=== PATIENT | female | born 1960 | race Caucasian/White ===

== ENCOUNTER 2020-07-16 14:17 | Inpatient (IN) ==
[2020-07-16] MEDS ORDERED: SODIUM CHLORIDE 0.9% 1000ML 2,000 ML IV ONE (14:48)
[2020-07-16] MEDS ORDERED: dexAMETHasone**PF** 10 MG/ML VIAL IV ONE (14:48)
--- NOTE | 2020-07-16 14:48 | Emergency Department Note ---
Impression & Plan Pneumonia due to 2019 novel coronavirus, Hypoxia, Transaminitis ED Provider Note NAME: LICHA SANTIAGO AGE: 59 SEX: F : 1960 ARRIVES VIA: Walk-In INFORMANT: Patient ED PROVIDER(S): Babar Max DO CHIEF COMPLAINT: Covid with shortness of breath HPI: Patient is a 59-year-old female who presents to the ER with a past medical history of Covid for which she was diagnosed this past . Symptoms started with cough and congestion as well as fevers, loss of taste, smell and headache along with diffuse myalgias and arthralgias. The shortness of breath has been worsening. She has diffuse chest pain with any movement or coughing. This been present since Sunday. She denies any belly pain, admits to diarrhea with nausea. No vomiting. Denies any dysuria, urgency, or frequency. No other exacerbating or remitting factors. No steroids. ROS: See above HPI for pertinent positives & negatives. A total of 10 systems reviewed and were otherwise negative. PAST MEDICAL HISTORY:See Below PAST SURGICAL HISTORY:See Below FAMILY HISTORY:See Below SOCIAL HISTORY:See Below HOME MEDICATIONS:See Below ALLERGIES:See Below VITALS:See Below PHYSICAL EXAMINATION: GENERAL: Sitting up in bed, alert, ill-appearing on nasal cannula EYE EXAM: normal conjunctiva. PERRL and EOM's grossly intact. OROPHARYNX: no exudate, no erythema, lips, buccal mucosa, and tongue normal and mucous membranes are moist NECK: supple, no nuchal rigidity, no adenopathy, non-tender LUNGS: Diminished bilaterally. Normal chest wall mechanics HEART: no murmurs, S1 normal and S2 normal ABDOMEN: abdomen soft, non-tender, normo-active bowel sounds, no masses, no rebound or guarding. UPPER EXTREMITIES: upper extremities are grossly normal. LOWER EXTREMITIES: No pitting edema. Calves are equal bilateral NEURO EXAM: Normal sensorium, cranial nerves II-XII grossly intact, normal s peech, no gross weakness of arms, no gross weakness of legs. MEDICAL DECISION MAKING: Patient is a 59-year-old female who presents the ER for shortness of breath Covid positive. IV was established blood work was obtained. Labs show a leukopenia at 4000. No significant anemia. No thrombocytopenia. BMP with mild hyponatremia. Mild transaminitis at 80-100. T bili was normal. Troponin was negative. Chest x-ray with multifocal pneumonia. Patient remained on nasal cannula throughout the stay in the ER as her pulse ox was 82% on room air. She was given Decadron as well as fluids and updated bedside discussed with the hospitalist for further evaluation. Triage Nursing notes reviewed. Limited review of prior medical records performed Vital Signs: reviewed and remarkable for Hypoxic Differential diagnosis: Differential diagnoses includes but is not limited to pneumonia, bronchitis, COPD/Asthma exacerbation, pneumothorax, pulmonary embolism, congestive heart failure, acute coronary syndrome ER treatment provided: See below Diagnostics interpreted by me: ECG: Sinus rhythm rate 85 Normal axis T wave inversion in aVL QTC 435 Cardiac Monitoring: An order was placed for continuous cardiac monitoring. The monitor shows a rate of 84 with sinus rhythm. Laboratory studies: As stated above and show below. Imaging studies: Portable AP upright 1 view of the chest shows multifocal pneumonia Consultation(s): Discussed with the hospitalist for further evaluation Procedures: none Critical Care: I have personally spent 33 minutes of critical care time in the direct manag ement of this patient. This includes bedside care, interpretation of diagnostic studies, and testing, discussion with consultants, patient, and family members, and other required patient management activities. This 33 minutes is in excess of all separately billable procedures. Past Med/Surg History Medical History (Updated 07/16/20 @ 21:16 by Babar Max DO) ADD (attention deficit disorder) Anxiety Depression History of small bowel obstruction Impaired fasting blood sugar Small bowel obstruction Surgical History (Updated 04/17/18 @ 08:59 by Faviola Guzman PA-C) History of appendectomy 05/02/2015 - [facility] -Dr Quiroga History of section "1996" History of exploratory laparotomy Exploratory laparoscopic resection of the adhesive band, resection of ter artis ileum with primary ileocecal anastomosis 05/02/15 - [facility] Dr Quiroga History of hysterectomy "Dr. Pantoja 09/2003" History of resection of terminal ileum Exploratory laparoscopic resection of the adhesive band, resection of terminal ileum with primary ileocecal anastomosis 05/02/15 - [facility] Dr Mar pan Family History (Updated 04/17/18 @ 09:04 by Faviola Guzman PA-C) Other Breast cancer FH: CAD (coronary artery disease) Hypertension Lung cancer Stroke Social History (Updated 04/17/18 @ 09:05 by Faviola Guzman PA-C) Smoking Status: Never smoker Hx Alcohol Use: Yes Alcohol type: wine Hx Substance Use: No Preferred Language: Gabonese Communication Ability: Effective Beliefs That Will Affect Care: None Current Living Situation: Family Current Living Situation Comment: lives with son Other Information That Helps Us Care for You: No Feels Safe at Home: Yes Safety Concerns: Feels Safe At This Time Assistive Devices: Glasses Allergies Allergies Allergy/AdvReac Type Severity Reaction Status Date / Time Sulfa (Sulfonamide Allergy Mild "SULFA": Verified 07/16/20 15:51 Antibiotics) UPSET STOMACH Home Meds Home Medications Medication Instructions Recorded Confirmed alprazolam 0.5 mg PO Q8 PRN 04/17/18 07/16/20 bupropion HCl 300 mg PO DAILY 04/17/18 07/16/20 cyclobenzaprine 10 mg PO HS PRN 04/17/18 07/16/20 dextroamphetamine-amphetamine 15 mg PO QPM 04/17/18 07/16/20 dextroamphetamine-amphetamine 30 mg PO BID 04/17/18 07/16/20 gabapentin 600 mg PO HS 04/17/18 07/16/20 dicyclomine 10 mg PO QID PRN 07/16/20 07/16/20 hydrochlorothiazide 25 mg PO DAILY 07/16/20 07/16/20 omeprazole 20 mg PO BID 07/16/20 07/16/20 trazodone 50 mg PO HS 07/16/20 07/16/20 vortioxetine [Trintellix] 20 mg PO QAM 07/16/20 07/16/20 Results & Data (ED) Vital Signs Vital Signs - 24 hr 07/16/20 14:22 07/16/20 14:28 07/16/20 15:59 Temperature 37.2 C Temperature Source Temporal Artery Scan Pulse Rate 96 H Pulse Rate [Finger] Respiratory Rate 24 Blood Pressure 106/72 Blood Pressure [Left Arm] Blood Pressure Mean 83 Blood Pressure Mean [Left Arm] Pulse Oximetry 82 L 82 L 98 Oxygen Delivery Method Room Air Room Air Oxymask Oxygen Flow Rate 0 7 Sepsis Recent Fever Within 48 Hours No Sepsis New/Unexplained Change in Mental Status N/A Sepsis Action Taken by Nursing No Action Required Oxygen Flow Rate - Titration 6 Pulse Oximetry Post Tiitration 94 07/16/20 16:06 07/16/20 16:56 Temperature Temperature Source Pulse Rate Pulse Rate [Finger] 85 85 Respiratory Rate 18 18 Blood Pressure Blood Pressure [Left Arm] 117/73 124/61 Blood Pressure Mean Blood Pressure Mean [Left Arm] 87 82 Pulse Oximetry 97 97 Oxygen Delivery Method Oxymask Room Air Oxygen Flow Rate 7 Sepsis Recent Fever Within 48 Hours Sepsis New/Unexplained Change in Mental Status Sepsis Action Taken by Nursing Oxygen Flow Rate - Titration Pulse Oximetry Post Tiitration Laboratory Data Result diagrams: 07/16/20 15:09 07/16/20 15:09 Lab Results 07/16/20 07/16/20 07/16/20 Range/Units 15:09 15:09 15:09 WBC 4.08 L (4.8-10.8) K/uL RBC 5.01 (4.2-5.4) M/uL Hgb 14.6 (12.0-16.0) g/dL Hct 43.3 (37-47) % MCV 86.4 (80-100) fL MCH 29.1 (25-34) pg MCHC 33.7 (32-36) g/dL RDW Std Deviation 50.7 H (36.4-46.3) fL RDW Coeff of Brenda 16.0 H (11.5-14.5) % Plt Count 163 (130-400) K/uL MPV 11.1 H (7.4-10.4) fL Immature Gran % (Auto) 0.7 % Neut % (Auto) 62.3 % Lymph % (Auto) 14.0 % [place] % (Auto) 22.8 % Eos % (Auto) 0.0 % Baso % (Auto) 0.2 % Neut # (Auto) 2.54 (1.4-6.5) K/uL Lymph # (Auto) 0.57 L (1.2-3.4) K/uL [place] # (Auto) 0.93 H (0.11-0.59) K/uL Eos # (Auto) 0.00 (0-0.5) K/uL Baso # (Auto) 0.01 (0-0.2) K/uL Immature Gran # (Auto) 0.03 H (0.00-0.02) K/uL Sodium 132 L (136-145) mmol/L Potassium 3.5 (3.5-5.1) mmol/L Chloride 96 L (98-107) mmol/L Carbon Dioxide 31 (21-32) mmol/L Anion Gap 5.0 (3-11) BUN 25 H (7-18) mg/dl Creatinine 1.06 (0.6-1.2) mg/dl Est Cr Clr Drug Dosing 64.6 ml/min Est GFR ( Amer) 67.5 Est GFR (Non-Af Amer) 58.2 BUN/Creatinine Ratio 23.6 H (10-20) Glucose 120 H (70-99) mg/dl Calcium 8.6 (8.5-10.1) mg/dl Total Bilirubin 0.4 Cancelled (0.2-1) mg/dl Direct Bilirubin 0.2 Cancelled (0-0.2) mg/dl AST 82 H Cancelled (15-37) U/L ALT 105 H Cancelled (12-78) U/L Alkaline Phosphatase 160 H Cancelled (45-117) U/L Troponin I < 0.015 (0-0.045) ng/ml Total Protein 8.0 Cancelled (6.4-8.2) gm/dl Albumin 3.3 L Cancelled (3.4-5.0) gm/dl Administered Medications Amphetamine/Dextroamphetamine (Amphetamine Asp/Sulf/Dextramph 5 Mg Tab) 15 mg PO 1630 YING Stop: 07/31/20 16:29 Last Admin: 07/16/20 20:50 Dose: Not Given Documented by: [id number] Enoxaparin Sodium (Enoxaparin Inj 40 Mg/0.4 Ml Syr) 40 mg SQ Q12H YING Stop: 08/15/20 19:59 Last Admin: 07/16/20 20:26 Dose: 40 mg Documented by: [id number] Gabapentin (Gabapentin 600 Mg Tab) 600 mg PO HS YING Stop: 08/15/20 20:59 Last Admin: 07/16/20 20:26 Dose: 600 mg Documented by: [id number] Sodium Chloride (Nss 1000ml) 1,000 mls @ 80 mls/hr IV .[id number] YING Stop: 07/17/20 07:09 Last Admin: 07/16/20 20:25 Dose: 80 mls/hr Documented by: [id number] Remdesivir 200 mg/ Sodium (Chloride) 250 mls @ 125 mls/hr IV ONE ONE; Protocol Stop: 07/16/20 21:29 Last Admin: 07/16/20 20:25 Dose: 125 mls/hr Documented by: [id number] Pantoprazole Sodium (Pantoprazole 40 Mg Tab) 40 mg PO BID YING Stop: 08/15/20 20:59 Last Admin: 07/16/20 20:26 Dose: 40 mg Documented by: [id number] Trazodone HCl (Trazodone Hcl 50 Mg Tab) 50 mg PO HS YING Stop: 08/15/20 20:59 Last Admin: 07/16/20 20:48 Dose: Not Given Documented by: [id number] Discontinued Medications Acetaminophen (Acetaminophen 500 Mg Tab) 1,000 mg PO NOW STA Stop: 07/16/20 16:55 Last Admin: 07/16/20 17:36 Dose: Not Given Documented by: [id number] Acetaminophen (Acetaminophen 500 Mg Tab) Confirm Administered Dose 500 mg .ROUTE .STK-MED ONE Stop: 07/16/20 17:01 Last Admin: 07/16/20 17:04 Dose: 500 mg Documented by: [id number] Acetaminophen (Acetaminophen 500 Mg Tab) Confirm Administered Dose 500 mg .ROUTE .STK-MED ONE Stop: 07/16/20 17:01 Last Admin: 07/16/20 17:04 Dose: 500 mg Documented by: [id number] Dexamethasone Sodium Phosphate (DexamethasonePf 10 Mg/Ml Vial) 8 mg IV NOW ONE Stop: 07/16/20 14:49 Last Admin: 07/16/20 16:02 Dose: 8 mg Documented by: [id number] Sodium Chloride (Nss 1000ml) 2,000 mls @ 999 mls/hr IV .Q2H1M ONE Stop: 07/16/20 16:48 Last Infusion: 07/16/20 18:04 Dose: 0 mls/hr Documented by: [id number] Admin: 07/16/20 16:02 Dose: 999 mls/hr Documented by: [id number] Imaging Data Radiologist's Impression: Chest X-Ray 07/16/20 14:30 SINGLE VIEW CHEST CLINICAL HISTORY: Respiratory distress. FINDINGS: An AP, portable, upright chest radiograph is compared to study dated 05/13/2015. The cardiomediastinal silhouette is unremarkable. Multifocal patchy airspace consolidation is seen throughout both lungs. No large pleural effusion or pneumothorax is seen. The skeletal structures are osteopenic. The bony thorax is grossly intact. IMPRESSION: Multifocal airspace consolidation is typical for pneumonia. Clinical correlation will be required and radiographic follow-up to resolution is recommended. ACT 112: Negative or not required by law. Electronically signed by: Reyes Frazier M.D. 07/16/2020 3:35 PM Discharge Plan Visit Data Chief Complaint: Chest Pain Stated Complaint: COVID +, CHEST PAIN ED Provider: Babar Max Discharge Problem: Pneumonia due to 2019 novel coronavirus, Hypoxia, Transaminitis Patient Disposition: Admitted As Inpatient Discharge Instructions Interventions: ED Discharge Assessment Last Done: 07/16/20 18:15
[2020-07-16 15:27] LABS: Basophils # (auto) 0.01 K/uL (0-0.2); Basophils % (auto) 0.2 %; Hematocrit (blood only) 43.3 % (37-47); Hemoglobin 14.6 g/dL (12.0-16.0); Immature Granulocytes # (auto) 0.03 K/uL (0.00-0.02); Immature Granulocytes % (auto) 0.7 %; Lymphocytes # (auto) 0.57 K/uL (1.2-3.4); Mean Corpuscular Hemoglobin 29.1 pg (25-34); Mean Corpuscular Hgb Conc 33.7 g/dL (32-36); Mean Corpuscular Volume 86.4 fL (80-100); Mean Platelet Volume 11.1 fL (7.4-10.4); Monocytes # (auto) 0.93 K/uL (0.11-0.59); Monocytes % (auto) 22.8 %; Neutrophils # (auto) 2.54 K/uL (1.4-6.5); Neutrophils % (auto) 62.3 %; Platelet Count 163 K/uL (130-400); RDW Standard Deviation 50.7 fL (36.4-46.3); Red Blood Count 5.01 M/uL (4.2-5.4); White Blood Count 4.08 K/uL (4.8-10.8)
--- NOTE | 2020-07-16 15:36 | XRay Report ---
SINGLE VIEW CHEST CLINICAL HISTORY: Respiratory distress. FINDINGS: An AP, portable, upright chest radiograph is compared to study dated 05/13/2015. The cardiom ediastinal silhouette is unremarkable. Multifocal patchy airspace consolidation is seen throughout yola th lungs. No large pleural effusion or pneumothorax is seen. The skeletal structures are osteopenic. The bony thorax is grossly intact. IMPRESSION: Multifocal airspace consolidation is typical for pneumonia. Clinical correlation will be required and radiographic follow-up to resolution is recommended. ACT 112: Negative or not required by law. Electronically signed by: Reeys Frazier M.D. 07/16/2020 3:35 PM
[2020-07-16 15:48] LABS: BUN Creatinine Ratio 23.6 (10-20); Blood Urea Nitrogen 25 mg/dl (7-18); Calcium 8.6 mg/dl (8.5-10.1); Carbon Dioxide 31 mmol/L (21-32); Chloride 96 mmol/L (98-107); Creatinine Clr Calc Pharmacy 64.6 ml/min; Est GFR (African American) 67.5; Est GFR (Non-African American) 58.2; Glucose 120 mg/dl (70-99); Potassium 3.5 mmol/L (3.5-5.1); Sodium 132 mmol/L (136-145)
[2020-07-16 15:52] LABS: Troponin I < 0.015 ng/ml (0-0.045)
[2020-07-16 16:24] LABS: Alanine Aminotransferase 105 U/L (12-78); Albumin Level 3.3 gm/dl (3.4-5.0); Alkaline Phosphatase 160 U/L (45-117); Aspartate Aminotransferase 82 U/L (15-37); Bilirubin Direct 0.2 mg/dl (0-0.2); Bilirubin,Total 0.4 mg/dl (0.2-1)
--- NOTE | 2020-07-16 16:29 | Electrocardiogram Report ---
Test Reason : Blood Pressure : / mmHG Vent. Rate : 085 BPM Atrial Rate : 085 BPM P-R Int : 176 ms QRS Dur : 102 ms QT Int : 366 ms P-R-T Axes : 009 -04 071 degrees QTc Int : 435 ms Normal sinus rhythm Confirmed by Guzman Cosme ([id number]) on 07/16/2020 4:29:21 PM Referred By: Confirmed By:Avila Cosme
[2020-07-16] MEDS ORDERED: ACETAMINOPHEN 500 MG TAB PO STA (16:54)
[2020-07-16] MEDS ORDERED: ACETAMINOPHEN 500 MG TAB ONE ×2 (17:00)
[2020-07-16] MEDS ORDERED: NITROGLYCERIN SL 0.4 MG/TAB TAB SL PRN (18:40)
[2020-07-16] MEDS ORDERED: SODIUM CHLORIDE 0.9% 1000ML 1,000 ML IV SCH (18:40)
[2020-07-16] MEDS ORDERED: DICYCLOMINE HCL 10 MG CAP PO PRN (18:40)
--- NOTE | 2020-07-16 19:05 | History and Physical Report ---
DATE OF ADMISSION: 07/16/2020 CHIEF COMPLAINT: Shortness of breath, COVID. HISTORY OF PRESENT ILLNESS: This is a 59-year-old female with past medical history significant for iron deficiency anemia, chronic fatigue syndrome, major depression, attention deficit hyperactivity disorder, status post repair of ventral hernia, presents with shortness of breath and chest pain. The patient started symptoms of COVID on last with congestion, fever, loss of smell and taste and headache along with myalgias and arthralgias and poor appetite. She also had some diarrhea, no diarrhea today. Last couple of days the symptoms got worse. She was tested on 07/13/2020 and was positive for COVID. In the ER, she was saturating only 82% on room air, requiring oxygen. Otherwise, resting comfortably and hemodynamically stable. Denies any blurred vision, no earache, has nausea, no vomiting, has chest pain, chest pain is more with coughing. No abdominal pain. Normal bladder movements. No rash. ALLERGIES: SULFA ANTIBIOTICS. PAST MEDICAL HISTORY: As mentioned above. PAST SURGICAL HISTORY: , colonoscopies, cryocautery of cervix, cystoscopy, EGDs, exploration of abdomen, implantation of mesh with incisional ventral hernia repair, total abdominal hysterectomy with removal of tubes. MEDICATIONS: The patient is on alprazolam 0.5 mg p.o. t.i.d. p.r.n., bupropion 300 mg p.o. daily, cyclobenzaprine 10 mg p.o. at bedtime p.r.n., Adderall 30 mg p.o. b.i.d., and Adderall 50 mg p.o. q.p.m., dicyclomine 10 mg p.o. t.i.d. p.r.n., gabapentin 600 mg p.o. at bedtime, hydrochlorothiazide 25 mg p.o. daily, omeprazole 20 mg p.o. b.i.d., trazodone 50 mg p.o. at bedtime, Trintellix 20 mg p.o. a.m. FAMILY HISTORY: Significant for sister had lung cancer, father has arthritis, mother has mental disorder, hypertension. SOCIAL HISTORY: Lives with her son. No smoking. Alcohol occasional. No drug use. REVIEW OF SYMPTOMS: As per HPI. Rest of review of systems negative. PHYSICAL EXAMINATION: GENERAL: The patient is obese, currently not in acute distress. VITAL SIGNS: Temperature 37.2, pulse 84, respiratory rate 18, blood pressure 124/61, oxygen 82% on room air, currently 97%. HEENT: Pupils equal, round, reactive to light. Oral mucosa dry. NECK: No JVD. No neck masses. CARDIOVASCULAR: S1, S2 heard, regular rate and rhythm, no murmur, no gallop. RESPIRATORY SYSTEM: Normal AP diameter. No accessory muscle use. No wheezing, no crackles. ABDOMEN: Soft, bowel sounds present, nontender. No distention. CENTRAL NERVOUS SYSTEM: Cranial nerves II-XII grossly intact. Nonfocal. EXTREMITIES: No edema, no erythema. LABORATORY DATA: WBC 4.08, hemoglobin 14.6, hematocrit 43.3, platelets 163. Sodium 132, potassium 3.5, chloride 96, bicarbonate 31, BUN 25, creatinine 1.06, serum glucose 120, calcium 8.6, total bilirubin 0.4, direct bilirubin 0.2, AST 82, ALT 105, alkaline phosphatase 160. Troponin I less than 0.015. Chest x-ray, multifocal airspace consolidation is typical for pneumonia. EKG: Normal sinus rhythm, rate of 85, no acute ST changes seen. QTc 435. ASSESSMENT AND PLAN: This 59-year-old female presents with COVID pneumonia and hypoxia. 1. COVID pneumonia, hypoxia requiring oxygen 82% on room air, symptoms started since last and diagnosed on 07/13/2020, patient meets criteria for remdesivir and steroids, follow remdesivir labs. Follow the inflammatory markers. Monitor on tele floor. 2. Chest pain, more with cough. Initial troponin and EKG unremarkable. Follow serial enzymes. 3. History of iron deficiency anemia, status post EGD, which is showing large hiatal hernia with Thomas erosions. She gets iron infusions. In May, she has seen surgery, there is a plan for surgery for hernia repair. Currently, hemoglobin is stable at 14.6. We will follow for any bleeding. 4. History of major depression and attention deficit hyperactivity disorder. Continue home medication of Adderall and bupropion and trazodone and Trintellix.. 5. Deep venous thrombosis prophylaxis, Lovenox .As the patient has history of iron deficiency anemia and Thomas erosions. Monitor for any bleeding. If any bleeding will stop Lovenox. DISPOSITION: Closely monitor in tele floor. Level 1 full code. Expect discharge home and follow with family doctor. YVON
[2020-07-16] MEDS ORDERED: REMDESIVIR 200 MG in SODIUM CHLORIDE 0.9% 210 ML IV ONE (19:30)
[2020-07-16] MEDS: GABAPENTIN 600 MG TAB PO SCH (20:26)
[2020-07-16] MEDS: ENOXAPARIN INJ 40 MG/0.4 ML SYR SQ SCH (20:26)
[2020-07-16] MEDS: PANTOprazole 40 MG TAB PO SCH (20:26)
[2020-07-16] MEDS: traZODone HCL 50 MG TAB PO SCH (20:48)
[2020-07-16] MEDS: AMPHETAMINE ASP/SULF/DEXTRAMPH 5 MG TAB PO SCH (20:50)
[2020-07-17] MEDS: SODIUM CHLORIDE 0.9% 10ML FLUSH IV SCH ×2 (01:49→22:13)
[2020-07-17 06:42] LABS: Hematocrit (blood only) 41.4 % (37-47); Hemoglobin 13.5 g/dL (12.0-16.0); Immature Granulocytes # (auto) 0.03 K/uL (0.00-0.02); Lymphocytes # (auto) 0.39 K/uL (1.2-3.4); Lymphocytes % (auto) 13.2 %; Mean Corpuscular Hemoglobin 28.8 pg (25-34); Mean Corpuscular Hgb Conc 32.6 g/dL (32-36); Mean Corpuscular Volume 88.5 fL (80-100); Mean Platelet Volume 11.2 fL (7.4-10.4); Monocytes # (auto) 0.51 K/uL (0.11-0.59); Monocytes % (auto) 17.2 %; Neutrophils # (auto) 2.03 K/uL (1.4-6.5); Neutrophils % (auto) 68.6 %; Platelet Count 152 K/uL (130-400); RDW Coefficient of Variation 16.1 % (11.5-14.5); RDW Standard Deviation 51.7 fL (36.4-46.3); Red Blood Count 4.68 M/uL (4.2-5.4); White Blood Count 2.96 K/uL (4.8-10.8)
[2020-07-17 06:55] LABS: D Dimer 620 ug/L FEU (0-500)
[2020-07-17 07:28] LABS: Alanine Aminotransferase 93 U/L (12-78); Albumin Level 2.8 gm/dl (3.4-5.0); Alkaline Phosphatase 151 U/L (45-117); Aspartate Aminotransferase 65 U/L (15-37); BUN Creatinine Ratio 26.3 (10-20); Bilirubin,Total 0.2 mg/dl (0.2-1); Blood Urea Nitrogen 20 mg/dl (7-18); Calcium 7.8 mg/dl (8.5-10.1); Carbon Dioxide 27 mmol/L (21-32); Chloride 106 mmol/L (98-107); Creatinine Clr Calc Pharmacy 85.6 ml/min; Est GFR (African American) 99.3; Est GFR (Non-African American) 85.7; Ferritin 606.5 ng/ml (8-388); Glucose 178 mg/dl (70-99); Potassium 3.7 mmol/L (3.5-5.1); Sodium 138 mmol/L (136-145); Total Protein 7.4 gm/dl (6.4-8.2); Troponin I < 0.015 ng/ml (0-0.045)
[2020-07-17 07:29] LABS: Magnesium 2.2 mg/dl (1.8-2.4)
[2020-07-17 08:07] LABS: Bilirubin Direct < 0.1 mg/dl (0-0.2)
[2020-07-17] MEDS: ENOXAPARIN INJ 40 MG/0.4 ML SYR SQ SCH ×2 (08:39→19:57)
[2020-07-17] MEDS: hydroCHLOROthiazide 25 MG TAB PO SCH (08:40)
[2020-07-17] MEDS: PANTOprazole 40 MG TAB PO SCH ×2 (08:40→19:56)
[2020-07-17] MEDS: buPROPion XL 300 MG TABCR PO SCH (08:41)
[2020-07-17] MEDS: AMPHETAMINE ASP/SULF/DEXTRAMPH 10 MG TAB PO SCH ×2 (09:01→12:30)
[2020-07-17] MEDS: LOPERAMIDE HCL 2 MG CAP PO PRN (11:01)
[2020-07-17] MEDS: ACETAMINOPHEN 325 MG TAB PO PRN ×2 (11:06→17:56)
[2020-07-17] MEDS: dexAMETHasone 6 MG in SYRINGE 0 ML IV SCH (17:57)
[2020-07-17] MEDS: AMPHETAMINE ASP/SULF/DEXTRAMPH 5 MG TAB PO SCH (18:00)
--- NOTE | 2020-07-17 19:10 | Hospitalist Progress Note ---
Date of Service July 17, 2020 Assessment & Plan (1) Pneumonia due to 2019 novel coronavirus: (2) Hypoxia: Present on admission with worsening SOB and cough CXR showed Multifocal airspace consolidation is typical for pneumonia Continue Dexamethasone 6mg IV daily and remdesivir daily Will monitor LFT while on Remdesivir Will check inflammatory markers Pt said that her symptoms has been for about 1 week and was tested positive covid 19 on 07/13 Since symptoms as been going for 1 week, not a candidate for convalescent plasma Continue oxygen supplement Pt was encouraged to prone Continue monitor close Diarrhea Moslty due to covid 19 Continue loperamide BID Chest pain Mostyl related to costochondritis due to cough from covid 19 Troponin x 3 negative EKG showed no ischemic changes Clinically stable Anemia iron def status post EGD, which is showing large hiatal hernia with Thomas erosions. On iron infusion outpatient Hgb stable Transaminitis Possible related to acute illness Elevated LFT with AST 82 and ALT 105 and ALk phos 160 Liver enzymes trending with AST 65, ALT 93 and Alk 151 Continue monitor CMP while on Remdesivir Depression Continue home medication of Adderall and bupropion and trazodone and Trintellix. Deep venous thrombosis prophylaxis on Lovenox Admission and Anticipated Discharge Date Admission Date: July 16, 2020 Subjective Pt was seen and examined for follow up SOB due to COVID 19 Lying in bed with mild respiratory distress Pt said that she has 2 bowel movements diarrhea today She said that her breathing sligltly improves compare to when she came Denies any chest pain, palpitation, dizziness and fever Review of Systems Review of Systems: All systems reviewed & are unremarkable except as noted in Subjective Physical Exam Physical Exam: General- No acute distress Head- atraumatic Eyes- PERRL, EOMI, ENT- oropharynx clear Neck- supple, no JVD Lungs- diminished BS Heart- regular rhythm; no murmur Abdomen- normal bowel sounds, soft, nontender Extremities- no calf tenderness Neuro- alert, oriented x 3; PERRL, EOMI; no facial palsy; no dysarthria Skin- warm & dry Results & Data Results & Data ([facility]) Vital Signs (Past 12 Hours) Vital Signs Temp Pulse Pulse Resp BP Pulse Ox 07/17/20 15:59 74 07/17/20 14:58 36.5 C 74 20 142/77 H 92 07/17/20 11:23 36.6 C 78 19 142/85 H 90 07/17/20 08:00 67 07/17/20 07:45 36.4 C L 69 19 119/79 90
[2020-07-17] MEDS: GABAPENTIN 600 MG TAB PO SCH (19:56)
[2020-07-17] MEDS: traZODone HCL 50 MG TAB PO SCH (19:57)
[2020-07-17] MEDS: REMDESIVIR 100 MG in SODIUM CHLORIDE 0.9% 230 ML IV SCH (19:57)
[2020-07-17] MEDS: traMADol HCL 50 MG TABLET PO PRN (22:12)
[2020-07-17] MEDS: guaiFENesin 200 MG TAB PO SCH (22:13)
[2020-07-18] MEDS: ACETAMINOPHEN 325 MG TAB PO PRN ×3 (00:16→15:20)
[2020-07-18] MEDS: guaiFENesin 200 MG TAB PO SCH ×4 (05:52→20:04)
[2020-07-18] MEDS: ALPRAZolam 0.5 MG TABLET PO PRN ×2 (06:34→23:19)
[2020-07-18 07:22] LABS: Creatinine Clr Calc Pharmacy 87.8 ml/min; Est GFR (African American) 102.6; Est GFR (Non-African American) 88.5
--- NOTE | 2020-07-18 07:35 | Electrocardiogram Report ---
Test Reason : Blood Pressure : / mmHG Vent. Rate : 066 BPM Atrial Rate : 066 BPM P-R Int : 198 ms QRS Dur : 110 ms QT Int : 416 ms P-R-T Axes : 049 -05 033 degrees QTc Int : 436 ms Poor data quality, interpretation may be adversely affected Normal sinus rhythm Normal ECG When compared with ECG of 16-JUL-2020 15:14, No significant change was found Confirmed by Flaquito Buckner ([id number]) on 07/18/2020 7:35:39 AM Referred By: REFERRED SELF Confirmed By:Flaquito Buckner
[2020-07-18] MEDS: ENOXAPARIN INJ 40 MG/0.4 ML SYR SQ SCH ×2 (09:20→20:00)
[2020-07-18] MEDS: dexAMETHasone 6 MG in SYRINGE 0 ML IV SCH (09:20)
[2020-07-18] MEDS: PANTOprazole 40 MG TAB PO SCH ×2 (09:20→20:04)
[2020-07-18] MEDS: hydroCHLOROthiazide 25 MG TAB PO SCH (09:21)
[2020-07-18] MEDS: buPROPion XL 300 MG TABCR PO SCH (09:21)
[2020-07-18] MEDS: AMPHETAMINE ASP/SULF/DEXTRAMPH 10 MG TAB PO SCH ×2 (09:23→12:00)
[2020-07-18] MEDS: LOPERAMIDE HCL 2 MG CAP PO PRN (11:29)
[2020-07-18] MEDS: AMPHETAMINE ASP/SULF/DEXTRAMPH 5 MG TAB PO SCH (17:42)
--- NOTE | 2020-07-18 19:01 | Hospitalist Progress Note ---
Date of Service July 18, 2020 Assessment & Plan (1) Pneumonia due to 2019 novel coronavirus: (2) Hypoxia: Present on admission with worsening SOB and cough CXR showed Multifocal airspace consolidation is typical for pneumonia Continue Dexamethasone 6mg IV daily and remdesivir daily Continue monitor LFT while on Remdesivir Will check Inflammatory markers Pt said that her symptoms has been for about 1 week and was tested positive covid 19 on 07/13 Since symptoms as been going for 1 week, not a candidate for convalescent plasma Continue oxygen supplement Pt was encouraged to prone Continue monitor close Diarrhea Moslty due to covid 19 Continue loperamide BID Chest pain Mostly related to costochondritis due to cough from covid 19 Troponin x 3 negative EKG showed no ischemic changes Clinically stable Anemia iron def status post EGD, which is showing large hiatal hernia with Thomas erosions. On iron infusion outpatient Hgb stable Transaminitis Possible related to acute illness Elevated LFT with AST 82 and ALT 105 and ALk phos 160 Liver enzymes trending down with AST 65->44, ALT 93->77 Continue monitor CMP while on Remdesivir Depression Continue home medication of Adderall and bupropion and trazodone and Trintellix. Deep venous thrombosis prophylaxis on Lovenox Admission and Anticipated Discharge Date Admission Date: July 16, 2020 Subjective Pt was seen and examined for follow up SOB due to COVID 19 Lying in bed with mild respiratory distress Pt said that her breathing is slightly better compare to yesterday She continues to require oxygen supplement She said that the diarrhea improves Denies any chest pain, palpitation, dizziness and fever Review of Systems Review of Systems: All systems reviewed & are unremarkable except as noted in Subjective Physical Exam Physical Exam: General- No acute distress Head- atraumatic Eyes- PERRL, EOMI, ENT- oropharynx clear Neck- supple, no JVD Lungs- diminished BS Heart- regular rhythm; no murmur Abdomen- normal bowel sounds, soft, nontender Extremities- no calf tenderness Neuro- alert, oriented x 3; PERRL, EOMI; no facial palsy; no dysarthria Skin- warm & dry Results & Data Results & [facility] ([facility]) Vital Signs (Past 12 Hours) Vital Signs Temp Pulse Resp BP BP Pulse Ox 07/18/20 18:42 36.6 C 74 20 142/88 H 94 07/18/20 15:51 36.6 C 75 20 147/99 H 07/18/20 11:09 36.4 C L 71 19 113/76 94 07/18/20 08:20 36.6 C 65 18 160/58 H 96
[2020-07-18] MEDS: SODIUM CHLORIDE 0.9% 10ML FLUSH IV SCH (20:01)
[2020-07-18] MEDS: REMDESIVIR 100 MG in SODIUM CHLORIDE 0.9% 230 ML IV SCH (20:01)
[2020-07-18] MEDS: traZODone HCL 50 MG TAB PO SCH (20:03)
[2020-07-18] MEDS: GABAPENTIN 600 MG TAB PO SCH (20:04)
[2020-07-19] MEDS: guaiFENesin 200 MG TAB PO SCH ×4 (03:37→19:47)
[2020-07-19] MEDS: AMPHETAMINE ASP/SULF/DEXTRAMPH 10 MG TAB PO SCH ×2 (08:46→12:33)
[2020-07-19] MEDS: traMADol HCL 50 MG TABLET PO PRN (08:46)
[2020-07-19] MEDS: hydroCHLOROthiazide 25 MG TAB PO SCH (08:47)
[2020-07-19] MEDS: buPROPion XL 300 MG TABCR PO SCH (08:48)
[2020-07-19] MEDS: PANTOprazole 40 MG TAB PO SCH ×2 (08:48→19:48)
[2020-07-19] MEDS: dexAMETHasone 6 MG in SYRINGE 0 ML IV SCH (08:49)
[2020-07-19] MEDS: ENOXAPARIN INJ 40 MG/0.4 ML SYR SQ SCH ×2 (08:49→19:47)
[2020-07-19] MEDS: CYCLOBENZAPRINE HCL 10 MG TAB PO PRN (09:06)
[2020-07-19 09:14] LABS: Albumin Level 3.2 gm/dl (3.4-5.0); BUN Creatinine Ratio 26.3 (10-20); C Reactive Protein 1.13 mg/dl (0-0.29); Creatinine Clr Calc Pharmacy 91.1 ml/min; Est GFR (African American) 107.7
[2020-07-19 09:20] LABS: Albumin Globulin Ratio 0.7 (0.9-2); Bilirubin,Total 0.4 mg/dl (0.2-1); Ferritin 347.7 ng/ml (8-388); Globulin 4.3 gm/dl (2.5-4.0); Total Protein 7.5 gm/dl (6.4-8.2)
[2020-07-19] MEDS ORDERED: POTASSIUM CHLORIDE CRTAB 20 MEQ TABCR PO STA (09:30)
[2020-07-19] MEDS ORDERED: POTASSIUM CHLORIDE 10 MEQ TABCR PO STA (09:30)
[2020-07-19] MEDS ORDERED: COUGH DROP (SUGAR FREE) LOZ 24 LOZ/1 BOX BUCCAL ONE (10:56)
--- NOTE | 2020-07-19 14:43 | Electrocardiogram Report ---
Test Reason : Blood Pressure : / mmHG Vent. Rate : 068 BPM Atrial Rate : 068 BPM P-R Int : 194 ms QRS Dur : 104 ms QT Int : 434 ms P-R-T Axes : 037 -04 057 degrees QTc Int : 461 ms Normal sinus rhythm Normal ECG When compared with ECG of 17-JUL-2020 05:56, Non-specific change in ST segment in Lateral leads Confirmed by Sriram Ellington ([id number]) on 07/19/2020 2:43:26 PM Referred By: REFERRED SELF Confirmed By:Sriram Ellington
[2020-07-19] MEDS: AMPHETAMINE ASP/SULF/DEXTRAMPH 5 MG TAB PO SCH (17:12)
--- NOTE | 2020-07-19 17:37 | Hospitalist Progress Note ---
Date of Service July 19, 2020 Assessment & Plan (1) Pneumonia due to 2019 novel coronavirus: (2) Hypoxia: Acute respiratory failure with hypoxia Present on admission with worsening SOB and cough CXR showed Multifocal airspace consolidation is typical for pneumonia Continue Dexamethasone 6mg IV daily and remdesivir daily Continue monitor LFT while on Remdesivir Inflammatory markers with ESR 36, C-reactive decreased from 2.9 to 1.1 and ferritin normal Pt said that her symptoms has been for about 1 week and was tested positive covid 19 on 07/13 Since symptoms as been going for 1 week, not a candidate for convalescent plasma Continue oxygen supplement Continue encouraged pt to prone Continue monitor close Continue guafenesin for the cough Continue incentive spirometry and flutter valve Diarrhea Mostly due to covid 19 Continue loperamide BID PRN Resolved Chest pain Mostly related to costochondritis due to cough from covid 19 Troponin x 3 negative EKG showed no ischemic changes Clinically stable Anemia iron def status post EGD, which is showing large hiatal hernia with Thomas erosions. On iron infusion outpatient Hgb stable Transaminitis Possible related to acute illness Elevated LFT with AST 82 and ALT 105 and ALk phos 160 Liver enzymes trending down with AST 65->44-> 32, ALT 93->77->62 Continue monitor CMP while on Remdesivir Depression Continue home medication of Adderall and bupropion and trazodone and Trintellix. Deep venous thrombosis prophylaxis on Lovenox Admission and Anticipated Discharge Date Admission Date: July 16, 2020 Subjective Pt was seen and examined for follow up SOB due to COVID 19 Lying in bed continue to require 15L oxygen Pt said that her breathing is slightly better compare to yesterday She said that the diarrhea improves She said that she continue to cough and not able to bring the phlegm up Denies any chest pain, palpitation, dizziness and fever Review of Systems Review of Systems: All systems reviewed & are unremarkable except as noted in Subjective Physical Exam Physical Exam: General- No acute distress Head- atraumatic Eyes- PERRL, EOMI, ENT- oropharynx clear Neck- supple, no JVD Lungs- diminished BS Heart- regular rhythm; no murmur Abdomen- normal bowel sounds, soft, nontender Extremities- no calf tenderness Neuro- alert, oriented x 3; PERRL, EOMI; no facial palsy; no dysarthria Skin- warm & dry Results & Data Results & Data ([facility]) Vital Signs (Past 12 Hours) Vital Signs Temp Pulse Pulse Resp BP Pulse Ox 07/19/20 16:00 75 07/19/20 12:40 37.0 C 91 H 20 138/70 94 07/19/20 10:33 84 07/19/20 08:00 36.9 C 91 H 20 140/77 93
[2020-07-19] MEDS: traZODone HCL 50 MG TAB PO SCH (19:46)
[2020-07-19] MEDS: ACETAMINOPHEN 325 MG TAB PO PRN (19:46)
[2020-07-19] MEDS: GABAPENTIN 600 MG TAB PO SCH (19:49)
[2020-07-19] MEDS: REMDESIVIR 100 MG in SODIUM CHLORIDE 0.9% 230 ML IV SCH (20:02)
[2020-07-19] MEDS: ALPRAZolam 0.5 MG TABLET PO PRN (21:46)
[2020-07-19] MEDS: SODIUM CHLORIDE 0.9% 10ML FLUSH IV SCH (21:46)
[2020-07-20] MEDS: guaiFENesin 200 MG TAB PO SCH ×4 (03:48→19:44)
[2020-07-20 07:11] LABS: Albumin Level 3.1 gm/dl (3.4-5.0); BUN Creatinine Ratio 29.2 (10-20); Calcium 8.9 mg/dl (8.5-10.1); Creatinine Clr Calc Pharmacy 102.7 ml/min; Est GFR (African American) 113.7; Est GFR (Non-African American) 98.1; Potassium 3.3 mmol/L (3.5-5.1)
[2020-07-20 07:16] LABS: Albumin Globulin Ratio 0.7 (0.9-2); Bilirubin,Total 0.4 mg/dl (0.2-1); Globulin 4.4 gm/dl (2.5-4.0); Total Protein 7.5 gm/dl (6.4-8.2)
[2020-07-20] MEDS: AMPHETAMINE ASP/SULF/DEXTRAMPH 10 MG TAB PO SCH ×2 (08:12→12:18)
[2020-07-20] MEDS: PANTOprazole 40 MG TAB PO SCH ×2 (08:12→19:45)
[2020-07-20] MEDS: hydroCHLOROthiazide 25 MG TAB PO SCH (08:12)
[2020-07-20] MEDS: ENOXAPARIN INJ 40 MG/0.4 ML SYR SQ SCH ×2 (08:13→19:45)
[2020-07-20] MEDS: buPROPion XL 300 MG TABCR PO SCH (08:14)
[2020-07-20] MEDS: ACETAMINOPHEN 325 MG TAB PO PRN ×3 (08:16→19:44)
[2020-07-20] MEDS: dexAMETHasone 6 MG in SYRINGE 0 ML IV SCH (08:16)
[2020-07-20] MEDS ORDERED: POTASSIUM CHLORIDE CRTAB 20 MEQ TABCR PO STA (08:27)
[2020-07-20 08:49] LABS: Hematocrit (blood only) 44.6 % (37-47); Hemoglobin 14.9 g/dL (12.0-16.0); Mean Corpuscular Hgb Conc 33.4 g/dL (32-36); Mean Corpuscular Volume 86.9 fL (80-100); Mean Platelet Volume 11.1 fL (7.4-10.4); Platelet Count 278 K/uL (130-400); RDW Coefficient of Variation 15.7 % (11.5-14.5); RDW Standard Deviation 50.2 fL (36.4-46.3); Red Blood Count 5.13 M/uL (4.2-5.4)
[2020-07-20 08:56] LABS: BUN Creatinine Ratio 26.3 (10-20); C Reactive Protein 2.14 mg/dl (0-0.29); Calcium 9.2 mg/dl (8.5-10.1); Creatinine Clr Calc Pharmacy 102.7 ml/min; Est GFR (African American) 113.7; Est GFR (Non-African American) 98.1; Potassium 3.4 mmol/L (3.5-5.1)
[2020-07-20 08:59] LABS: Albumin Globulin Ratio 0.7 (0.9-2); Bilirubin,Total 0.4 mg/dl (0.2-1); Ferritin 313.2 ng/ml (8-388); Globulin 4.3 gm/dl (2.5-4.0); Total Protein 7.3 gm/dl (6.4-8.2)
--- NOTE | 2020-07-20 16:23 | Hospitalist Progress Note ---
Date of Service July 20, 2020 Assessment & Plan (1) Pneumonia due to 2019 novel coronavirus: (2) Hypoxia: Acute respiratory failure with hypoxia Present on admission with worsening SOB and cough CXR showed Multifocal airspace consolidation is typical for pneumonia Continue Dexamethasone 6mg IV daily and remdesivir daily Continue monitor LFT while on Remdesivir Inflammatory markers with ESR 36-><44 , C-reactive from 2.9 to 1.1 -> 2.14 and ferritin normal Pt said that her symptoms has been for about 1 week and was tested positive covid 19 on 07/13 Since symptoms as been going for 1 week, not a candidate for convalescent plasma Currently she is on 6L NC, will continue titrate Continue encouraged pt to prone Continue monitor close Continue guaifenesin for the cough Continue incentive spirometry and flutter valve Diarrhea Mostly due to covid 19 Continue loperamide BID PRN Resolved Chest pain Mostly related to costochondritis due to cough from covid 19 Troponin x 3 negative EKG showed no ischemic changes Clinically stable Anemia iron def status post EGD, which is showing large hiatal hernia with Thomas erosions. On iron infusion outpatient Hgb stable Transaminitis Possible related to acute illness Elevated LFT with AST 82 and ALT 105 and ALk phos 160 Liver enzymes trending down with AST 65->44-> 32, ALT 93->77->62 Continue monitor CMP while on Remdesivir Depression Continue home medication of Adderall and bupropion and trazodone and Trintellix. Deep venous thrombosis prophylaxis on Lovenox Admission and Anticipated Discharge Date Admission Date: July 16, 2020 Subjective Pt was seen and examined for follow up SOB due to COVID 19 Sitting in chair with no distress Pt said that her breathing improves She is on 6 L NC and she said that she is breathing a lot better She has no diarrhea She said that she continues to cough and phlegm starts to get loose Denies any chest pain, palpitation, dizziness and fever Review of Systems Review of Systems: All systems reviewed & are unremarkable except as noted in Subjective Physical Exam Physical Exam: General- No acute distress Head- atraumatic Eyes- PERRL, EOMI, ENT- oropharynx clear Neck- supple, no JVD Lungs- diminished BS Heart- regular rhythm; no murmur Abdomen- normal bowel sounds, soft, nontender Extremities- no calf tenderness Neuro- alert, oriented x 3; PERRL, EOMI; no facial palsy; no dysarthria Skin- warm & dry Results & Data Results & Data ([facility]) Vital Signs (Past 12 Hours) Vital Signs Temp Pulse Pulse Resp BP BP Pulse Ox 07/20/20 15:38 36.5 C 83 19 151/93 H 90 07/20/20 15:03 79 07/20/20 12:06 36.6 C 80 19 128/84 90 07/20/20 08:00 72 07/20/20 07:29 36.4 C L 72 19 149/88 H 90
[2020-07-20] MEDS: AMPHETAMINE ASP/SULF/DEXTRAMPH 5 MG TAB PO SCH (16:35)
[2020-07-20] MEDS: GABAPENTIN 600 MG TAB PO SCH (19:44)
[2020-07-20] MEDS: traZODone HCL 50 MG TAB PO SCH (19:44)
[2020-07-20] MEDS: REMDESIVIR 100 MG in SODIUM CHLORIDE 0.9% 230 ML IV SCH (20:05)
[2020-07-20] MEDS: SODIUM CHLORIDE 0.9% 10ML FLUSH IV SCH (20:06)
[2020-07-20] MEDS: ALPRAZolam 0.5 MG TABLET PO PRN (21:30)
[2020-07-21] MEDS: guaiFENesin 200 MG TAB PO SCH ×4 (03:28→19:48)
[2020-07-21 07:09] LABS: Albumin Level 3.2 gm/dl (3.4-5.0); BUN Creatinine Ratio 29.4 (10-20); Calcium 8.8 mg/dl (8.5-10.1); Creatinine Clr Calc Pharmacy 100.9 ml/min; Est GFR (African American) 113.1; Est GFR (Non-African American) 97.6; Potassium 3.5 mmol/L (3.5-5.1)
[2020-07-21 07:12] LABS: Albumin Globulin Ratio 0.7 (0.9-2); Bilirubin,Total 0.6 mg/dl (0.2-1); C Reactive Protein 1.68 mg/dl (0-0.29); Globulin 4.4 gm/dl (2.5-4.0); Total Protein 7.6 gm/dl (6.4-8.2)
[2020-07-21] MEDS: AMPHETAMINE ASP/SULF/DEXTRAMPH 10 MG TAB PO SCH ×2 (07:37→11:17)
[2020-07-21] MEDS: ACETAMINOPHEN 325 MG TAB PO PRN ×3 (07:37→19:54)
[2020-07-21] MEDS: dexAMETHasone 6 MG in SYRINGE 0 ML IV SCH (08:05)
[2020-07-21] MEDS: buPROPion XL 300 MG TABCR PO SCH (08:06)
[2020-07-21] MEDS: hydroCHLOROthiazide 25 MG TAB PO SCH (08:06)
[2020-07-21] MEDS: PANTOprazole 40 MG TAB PO SCH ×2 (08:06→19:46)
[2020-07-21] MEDS: guaiFENesin 600 MG TABCR PO SCH ×2 (08:07→19:48)
[2020-07-21] MEDS: ENOXAPARIN INJ 40 MG/0.4 ML SYR SQ SCH ×2 (08:07→19:49)
[2020-07-21] MEDS: VORTIOXETINE HYDROBROMIDE PO SCH (08:07)
[2020-07-21] MEDS ORDERED: POTASSIUM CHLORIDE CRTAB 20 MEQ TABCR PO STA (08:15)
--- NOTE | 2020-07-21 08:18 | Hospitalist Progress Note ---
Date of Service July 21, 2020 Assessment & Plan (1) Pneumonia due to 2019 novel coronavirus: (2) Hypoxia: Acute respiratory failure with hypoxia Present on admission with worsening SOB and cough CXR showed Multifocal airspace consolidation is typical for pneumonia Continue Dexamethasone 6mg IV daily and remdesivir daily (Remdesevir finished) Continue monitor LFT while on Remdesivir Inflammatory markers with ESR 36-><44 , C-reactive from 2.9 to 1.1 -> 2.14 and ferritin normal Pt said that her symptoms has been for about 1 week and was tested positive covid 19 on 07/13 Since symptoms as been going for 1 week, not a candidate for convalescent plasma Currently she is on 4.5L NC, will continue titrate Continue encouraged pt to prone Continue monitor close Continue guaifenesin for the cough, incentive spirometry and flutter valve Continues to have cough, high oxygen requirement, pain with inspiration or movement, will obtain CT PE to rule out PE Diarrhea Mostly due to covid 19 Continue loperamide BID PRN Resolved Chest pain Mostly related to costochondritis due to cough from covid 19 Troponin x 3 negative EKG showed no ischemic changes Clinically stable Obtain CT PE, to rule out PE Anemia iron def status post EGD, which is showing large hiatal hernia with Thomas erosions. On iron infusion outpatient Hgb stable Transaminitis Possible related to acute illness Elevated LFT with AST 82 and ALT 105 and ALk phos 160 Liver enzymes trending down with AST 65->44-> 32, ALT 93->77->62 Continue monitor CMP while on Remdesivir Depression Continue home medication of Adderall and bupropion and trazodone and Trintellix. DVT prophylaxis on Lovenox Admission and Anticipated Discharge Date Admission Date: July 16, 2020 Subjective Pt was seen and examined for follow up SOB due to COVID 19 Sitting in bed with no distress Pt said that her breathing improved but she feels warm and has rib pain with movement She is on 4.5 L NC She has diarrhea/ loose stools, she has had it prior to admission She said that she continues to cough and phlegm starts to get loose Denies any chest pain, palpitation, dizziness and fever Review of Systems Review of Systems: All systems reviewed & are unremarkable except as noted in HPI & below Constitutional: no fever (but feeling warm) Respiratory: + cough, + dyspnea (improved) and + pain on inspiration Cardiovascular: + chest pain (lower ribcage pain w/ inspiration) Gastrointestinal: no abdominal pain, no nausea and no vomiting Physical Exam Physical Exam: General- No acute distress Head- atraumatic Eyes- PERRL, EOMI, ENT- oropharynx clear Neck- supple, no JVD Lungs- + diffuse mild rhonchi, no wheezing Heart- regular rhythm; no murmur Abdomen- normal bowel sounds, soft, nontender Extremities- no calf tenderness Neuro- alert, oriented x 3; PERRL, EOMI; no facial palsy; no dysarthria, moves extremities Skin- warm & dry Results & Data Results & Data ([facility]) Vital Signs (Past 12 Hours) Vital Signs Temp Pulse Pulse Resp BP BP Pulse Ox 07/21/20 07:43 73 07/21/20 07:30 36.3 C L 76 22 144/86 H 91 07/21/20 03:43 36.3 C L 69 18 125/78 90 07/20/20 23:00 65 07/20/20 22:51 36.3 C L 68 20 125/69 91 Laboratory Results 07/21/20 07/21/20 07/20/20 Range/Units 06:10 06:10 05:28 WBC 5.40 (4.8-10.8) K/uL RBC 5.13 (4.2-5.4) M/uL Hgb 14.9 (12.0-16.0) g/dL Hct 44.6 (37-47) % MCV 86.9 (80-100) fL MCH 29.0 (25-34) pg MCHC 33.4 (32-36) g/dL RDW Std Deviation 50.2 H (36.4-46.3) fL RDW Coeff of Brenda 15.7 H (11.5-14.5) % Plt Count 278 (130-400) K/uL MPV 11.1 H (7.4-10.4) fL ESR 47 H (0-30) mm/hr Sodium 137 (136-145) mmol/L Potassium 3.5 (3.5-5.1) mmol/L Chloride 103 (98-107) mmol/L Carbon Dioxide 28 (21-32) mmol/L Anion Gap 6.0 (3-11) BUN 20 H (7-18) mg/dl Creatinine 0.67 (0.6-1.2) mg/dl Est Cr Clr Drug Dosing 100.9 ml/min Est GFR ( Amer) 113.1 Est GFR (Non-Af Amer) 97.6 BUN/Creatinine Ratio 29.4 H (10-20) Glucose 117 H (70-99) mg/dl Calcium 8.8 (8.5-10.1) mg/dl Ferritin (8-388) ng/ml Total Bilirubin 0.6 (0.2-1) mg/dl AST 44 H (15-37) U/L ALT 79 H (12-78) U/L Alkaline Phosphatase 137 H (45-117) U/L C-Reactive Protein 1.68 H (0-0.29) mg/dl Total Protein 7.6 (6.4-8.2) gm/dl Albumin 3.2 L (3.4-5.0) gm/dl Globulin 4.4 H (2.5-4.0) gm/dl Albumin/Globulin Ratio 0.7 L (0.9-2) 07/20/20 07/20/20 Range/Units 05:28 05:28 WBC (4.8-10.8) K/uL RBC (4.2-5.4) M/uL Hgb (12.0-16.0) g/dL Hct (37-47) % MCV (80-100) fL MCH (25-34) pg MCHC (32-36) g/dL RDW Std Deviation (36.4-46.3) fL RDW Coeff of Brenda (11.5-14.5) % Plt Count (130-400) K/uL MPV (7.4-10.4) fL ESR 44 H (0-30) mm/hr Sodium 136 (136-145) mmol/L Potassium 3.4 L (3.5-5.1) mmol/L Chloride 101 (98-107) mmol/L Carbon Dioxide 29 (21-32) mmol/L Anion Gap 6.0 (3-11) BUN 17 (7-18) mg/dl Creatinine 0.66 (0.6-1.2) mg/dl Est Cr Clr Drug Dosing 102.7 ml/min Est GFR ( Amer) 113.7 Est GFR (Non-Af Amer) 98.1 BUN/Creatinine Ratio 26.3 H (10-20) Glucose 119 H (70-99) mg/dl Calcium 9.2 (8.5-10.1) mg/dl Ferritin 313.2 (8-388) ng/ml Total Bilirubin 0.4 (0.2-1) mg/dl AST 35 (15-37) U/L ALT 62 (12-78) U/L Alkaline Phosphatase 129 H (45-117) U/L C-Reactive Protein 2.14 H (0-0.29) mg/dl Total Protein 7.3 (6.4-8.2) gm/dl Albumin 3.0 L (3.4-5.0) gm/dl Globulin 4.3 H (2.5-4.0) gm/dl Albumin/Globulin Ratio 0.7 L (0.9-2) Medications Administered Current Inpatient Medications Acetaminophen (Acetaminophen 325 Mg Tab) 650 mg PO Q4H PRN PRN Reason: Pain or Fever Stop: 08/15/20 18:39 Last Admin: 07/21/20 07:37 Dose: 650 mg Documented by: Alprazolam (Alprazolam 0.5 Mg Tablet) 0.5 mg PO Q8 PRN PRN Reason: Anxiety Stop: 08/15/20 18:39 Last Admin: 07/20/20 21:30 Dose: 0.5 mg Documented by: Amphetamine/Dextroamphetamine (Amphetamine Asp/Sulf/Dextramph 10 Mg Tab) 30 mg PO 0730,1130 [facility] Stop: 07/31/20 07:29 Last Admin: 07/21/20 07:37 Dose: 30 mg Documented by: Amphetamine/Dextroamphetamine (Amphetamine Asp/Sulf/Dextramph 5 Mg Tab) 15 mg PO 1630 [facility] Stop: 07/31/20 16:29 Last Admin: 07/20/20 16:35 Dose: 15 mg Documented by: Bupropion HCl (Bupropion Xl 300 Mg Tabcr) 300 mg PO DAILY [facility] Stop: 08/16/20 08:59 Last Admin: 07/21/20 08:06 Dose: 300 mg Documented by: Cyclobenzaprine HCl (Cyclobenzaprine Hcl 10 Mg Tab) 10 mg PO HS PRN PRN Reason: Muscle Spasm Stop: 08/15/20 18:56 Last Admin: 07/19/20 09:06 Dose: 10 mg Documented by: Dicyclomine HCl (Dicyclomine Hcl 10 Mg Cap) 10 mg PO QID PRN PRN Reason: Abdominal Discomfort Stop: 08/15/20 18:39 Enoxaparin Sodium (Enoxaparin Inj 40 Mg/0.4 Ml Syr) 40 mg SQ Q12H [facility] Stop: 08/15/20 19:59 Last Admin: 07/21/20 08:07 Dose: 40 mg Documented by: Gabapentin (Gabapentin 600 Mg Tab) 600 mg PO HS [facility] Stop: 08/15/20 20:59 Last Admin: 07/20/20 19:44 Dose: 600 mg Documented by: Guaifenesin (Guaifenesin 200 Mg Tab) 200 mg PO Q6H [facility] Stop: 08/16/20 19:59 Last Admin: 07/21/20 08:05 Dose: 200 mg Documented by: Guaifenesin (Guaifenesin 600 Mg Tabcr) 600 mg PO Q12 [facility] Stop: 08/20/20 08:59 Last Admin: 07/21/20 08:07 Dose: 600 mg Documented by: Hydrochlorothiazide (Hydrochlorothiazide 25 Mg Tab) 25 mg PO DAILY [facility] Stop: 08/16/20 08:59 Last Admin: 07/21/20 08:06 Dose: 25 mg Documented by: Dexamethasone 6 mg/ Syringe 1.5 mls @ 1 mls/min IV DAILY [facility] Stop: 07/27/20 15:59 Last Admin: 07/21/20 08:05 Dose: 1 mls/min Documented by: Loperamide HCl (Loperamide Hcl 2 Mg Cap) 2 mg PO Q8H PRN PRN Reason: Diarrhea Stop: 08/16/20 09:05 Last Admin: 07/18/20 11:29 Dose: 2 mg Documented by: Nitroglycerin (Nitroglycerin Sl 0.4 Mg/Tab Tab) 0.4 mg SL UD PRN PRN Reason: Chest Pain Stop: 08/15/20 18:39 Pantoprazole Sodium (Pantoprazole 40 Mg Tab) 40 mg PO BID [facility] Stop: 08/15/20 20:59 Last Admin: 07/21/20 08:06 Dose: 40 mg Documented by: Potassium Chloride (Potassium Chloride Crtab 20 Meq Tabcr) 40 meq PO NOW STA Stop: 07/21/20 08:16 Tramadol HCl (Tramadol Hcl 50 Mg Tablet) 25 - 50 mg PO Q4H PRN PRN Reason: Pain Stop: 08/16/20 21:45 Last Admin: 07/19/20 08:46 Dose: 50 mg Documented by: Trazodone HCl (Trazodone Hcl 50 Mg Tab) 50 mg PO HS [facility] Stop: 08/15/20 20:59 Last Admin: 07/20/20 19:44 Dose: 50 mg Documented by: Vortioxetine (Vortioxetine Hydrobromide) 1 ea PO DAILY [facility] Stop: 08/20/20 08:59 Last Admin: 07/21/20 08:07 Dose: 1 ea Documented by:
--- NOTE | 2020-07-21 10:59 | XRay Report ---
XR chest 1V portable HISTORY: 59 years-old Female follow up acute shortness of breath COMPARISON: Chest radiograph 07/16/2020 TECHNIQUE: Portable AP view of the chest FINDINGS: Cardiomediastinal and hilar silhouettes are unchanged. Multifocal airspace opacities redemonstrated w ith progressive consolidation of the left lung base. No pneumothorax. Mild blunting of the cost chron ic angles may reflect trace pleural effusions. Degenerative changes of the shoulders and spine. IMPRESSION: Bilateral airspace opacities with progressive consolidation of the left lung base. Findin gs are compatible with multifocal pneumonia. ACT 112: Negative or not required by law. The above report was generated using voice recognition software. It may contain grammatical, syntax o r spelling errors. Electronically signed by: Hitesh Terry M.D. 07/21/2020 10:58 AM
[2020-07-21] MEDS: cefTRIAXone SODIUM 2,000 MG in DEXTROSE 5% 50 ML IV SCH (16:36)
[2020-07-21] MEDS: DOXYCYCLINE HYCLATE 100 MG CAP PO SCH ×2 (16:36→21:49)
[2020-07-21] MEDS: ADVANCED PROBIOTIC 1250 MG CAPSULE PO SCH (16:37)
[2020-07-21] MEDS: AMPHETAMINE ASP/SULF/DEXTRAMPH 5 MG TAB PO SCH (16:46)
[2020-07-21] MEDS ORDERED: OPTIRAY 350 500ml IV ONE (17:19)
--- NOTE | 2020-07-21 17:35 | CT Scan Report ---
CT ANGIOGRAPHY OF THE CHEST, PULMONARY EMBOLUS PROTOCOL CLINICAL HISTORY: Shortness of breath. Covid. COMPARISON STUDY: Chest radiograph performed earlier today. TECHNIQUE: Following IV administration of 105 mL of Optiray, helical axial images of the chest were o btained utilizing the pulmonary embolus protocol. Maximal intensity projections and sagittal and cor onal reformats were viewed on an independent 3D workstation. IV contrast was administered without co mplication. Automated exposure control was utilized for the study. A dose lowering technique was ut ilized adhering to the principles of ALARA. CT DOSE: 504.75 mGy.cm FINDINGS: No pulmonary emboli are identified although this exam is mildly compromised by mixing thad fact, most pronounced within the left pulmonary artery. Size of the heart is at the upper limits of n ormal. A large hiatal hernia is noted. Prominent bilateral hilar lymph nodes are noted. Moderate mult ifocal consolidation groundglass opacities within the lungs are noted. Central airways are patent. Th ere is no pneumothorax or pleural effusion. Hepatic steatosis is noted. There is no thoracic aortic d issection. There is no pericardial effusion. IMPRESSION: 1. No pulmonary emboli identified although exam mildly compromised by mixing artifact. 2. Moderate multifocal consolidation groundglass opacities within lungs consistent with viral pneumon ia. 3. Large hiatal hernia. 4. Hepatic steatosis. ACT 112: Negative or not required by law. Electronically signed by: Shawn Huddleston M.D. 07/21/2020 5:34 PM
[2020-07-21] MEDS: traZODone HCL 50 MG TAB PO SCH (19:45)
[2020-07-21] MEDS: GABAPENTIN 600 MG TAB PO SCH (19:54)
[2020-07-21] MEDS: ALPRAZolam 0.5 MG TABLET PO PRN (20:35)
[2020-07-22] MEDS: guaiFENesin 200 MG TAB PO SCH ×4 (02:00→20:36)
[2020-07-22 06:35] LABS: Hematocrit (blood only) 45.6 % (37-47); Hemoglobin 15.3 g/dL (12.0-16.0); Mean Corpuscular Hgb Conc 33.6 g/dL (32-36); Mean Corpuscular Volume 86.5 fL (80-100); Mean Platelet Volume 10.9 fL (7.4-10.4); Platelet Count 392 K/uL (130-400); RDW Coefficient of Variation 15.6 % (11.5-14.5); RDW Standard Deviation 49.1 fL (36.4-46.3); Red Blood Count 5.27 M/uL (4.2-5.4); White Blood Count 7.58 K/uL (4.8-10.8)
[2020-07-22 07:38] LABS: BUN Creatinine Ratio 32.6 (10-20); Est GFR (African American) 113.1; Est GFR (Non-African American) 97.6; Magnesium 2.2 mg/dl (1.8-2.4); Potassium 4.1 mmol/L (3.5-5.1)
[2020-07-22] MEDS: PANTOprazole 40 MG TAB PO SCH ×2 (07:45→20:35)
[2020-07-22] MEDS: dexAMETHasone 6 MG in SYRINGE 0 ML IV SCH (07:45)
[2020-07-22] MEDS: AMPHETAMINE ASP/SULF/DEXTRAMPH 10 MG TAB PO SCH ×2 (07:45→12:05)
[2020-07-22] MEDS: DOXYCYCLINE HYCLATE 100 MG CAP PO SCH ×2 (07:45→20:35)
[2020-07-22] MEDS: buPROPion XL 300 MG TABCR PO SCH (07:46)
[2020-07-22] MEDS: ADVANCED PROBIOTIC 1250 MG CAPSULE PO SCH (07:46)
[2020-07-22] MEDS: hydroCHLOROthiazide 25 MG TAB PO SCH (07:46)
[2020-07-22] MEDS: guaiFENesin 600 MG TABCR PO SCH ×2 (07:47→20:35)
[2020-07-22] MEDS: VORTIOXETINE HYDROBROMIDE PO SCH (07:47)
[2020-07-22] MEDS: ENOXAPARIN INJ 40 MG/0.4 ML SYR SQ SCH ×2 (07:48→20:35)
[2020-07-22] MEDS: ACETAMINOPHEN 325 MG TAB PO PRN ×3 (08:17→20:43)
--- NOTE | 2020-07-22 08:43 | Hospitalist Progress Note ---
Date of Service July 22, 2020 Assessment & Plan (1) Pneumonia due to 2019 novel coronavirus: (2) Hypoxia: Acute respiratory failure with hypoxia Present on admission with worsening SOB and cough CXR showed Multifocal airspace consolidation is typical for pneumonia Continue Dexamethasone 6mg IV daily and remdesivir daily (Remdesevir finished) Continue monitor LFT while on Remdesivir Inflammatory markers with ESR 36-><44 , C-reactive from 2.9 to 1.1 -> 2.14 and ferritin normal Pt said that her symptoms has been for about 1 week and was tested positive covid 19 on 07/13 Since symptoms as been going for 1 week, not a candidate for convalescent plasma Currently she is on 3.5L NC, will continue titrate Continue encouraged pt to prone Continue monitor close Continue guaifenesin for the cough, incentive spirometry and flutter valve CT PE - negative for PE Diarrhea Mostly due to covid 19 stool cultx ordered Continue loperamide BID PRN improved Chest pain Mostly related to costochondritis due to cough from covid 19 Troponin x 3 negative EKG showed no ischemic changes Clinically stable Obtained CT PE, negat. for PE Anemia iron def status post EGD, which is showing large hiatal hernia with Thomas erosions. On iron infusion outpatient Hgb stable Transaminitis Possible related to acute illness Elevated LFT with AST 82 and ALT 105 and ALk phos 160 Liver enzymes trending down with AST 65->44-> 32, ALT 93->77->62 Continued to monitor CMP while on Remdesivir Depression Continue home medication of Adderall and bupropion and trazodone and Trintellix. DVT prophylaxis on Lovenox Admission and Anticipated Discharge Date Admission Date: July 16, 2020 Subjective Pt was seen and examined for follow up SOB due to COVID 19 Laying in bed with no distress Feels that breathing has improved, feels very weak She is on 3.5 L NC She has loose stools, started prior to admission Denies any chest pain, palpitation, dizziness and fever Review of Systems Review of Systems: All systems reviewed & are unremarkable except as noted in HPI & below Constitutional: no fever and no chills Respiratory: + cough, + dyspnea (improved) and + pain on inspiration Gastrointestinal: no abdominal pain, no nausea and no vomiting Physical Exam Physical Exam: General- No acute distress Head- atraumatic Eyes- PERRL, EOMI, ENT- oropharynx clear Neck- supple, no JVD Lungs- CTAB, no rhonchi, no wheezing Heart- regular rhythm; no murmur Abdomen- normal bowel sounds, soft, nontender Extremities- no calf tenderness Neuro- alert, oriented x 3; PERRL, EOMI; no facial palsy; no dysarthria, moves extremities Skin- warm & dry Results & Data Results & Data ([facility]) Vital Signs (Past 12 Hours) Vital Signs Temp Pulse Pulse Resp BP BP Pulse Ox 07/22/20 08:01 36.4 C L 88 22 121/75 91 07/22/20 03:43 36.6 C 76 H 133/81 94 07/21/20 23:57 36.6 C 70 18 129/84 90 Laboratory Results 07/22/20 07/22/20 07/22/20 Range/Units 05:52 05:52 05:52 WBC 7.58 (4.8-10.8) K/uL RBC 5.27 (4.2-5.4) M/uL Hgb 15.3 (12.0-16.0) g/dL Hct 45.6 (37-47) % MCV 86.5 (80-100) fL MCH 29.0 (25-34) pg MCHC 33.6 (32-36) g/dL RDW Std Deviation 49.1 H (36.4-46.3) fL RDW Coeff of Brenda 15.6 H (11.5-14.5) % Plt Count 392 (130-400) K/uL MPV 10.9 H (7.4-10.4) fL Sodium 135 L (136-145) mmol/L Potassium 4.1 D (3.5-5.1) mmol/L Chloride 102 (98-107) mmol/L Carbon Dioxide 28 (21-32) mmol/L Anion Gap 5.0 (3-11) BUN 22 H (7-18) mg/dl Creatinine 0.67 (0.6-1.2) mg/dl Est Cr Clr Drug Dosing 97.0 ml/min Est GFR ( Amer) 113.1 Est GFR (Non-Af Amer) 97.6 BUN/Creatinine Ratio 32.6 H (10-20) Glucose 117 H (70-99) mg/dl Calcium 9.0 (8.5-10.1) mg/dl Phosphorus 3.0 (2.5-4.9) mg/dl Magnesium 2.2 (1.8-2.4) mg/dl Procalcitonin < 0.05 (0-0.5) ng/ml 07/21/20 07/21/20 Range/Units 06:10 06:10 WBC (4.8-10.8) K/uL RBC (4.2-5.4) M/uL Hgb (12.0-16.0) g/dL Hct (37-47) % MCV (80-100) fL MCH (25-34) pg MCHC (32-36) g/dL RDW Std Deviation (36.4-46.3) fL RDW Coeff of Brenda (11.5-14.5) % Plt Count (130-400) K/uL MPV (7.4-10.4) fL Sodium (136-145) mmol/L Potassium (3.5-5.1) mmol/L Chloride (98-107) mmol/L Carbon Dioxide (21-32) mmol/L Anion Gap (3-11) BUN (7-18) mg/dl Creatinine (0.6-1.2) mg/dl Est Cr Clr Drug Dosing ml/min Est GFR ( Amer) Est GFR (Non-Af Amer) BUN/Creatinine Ratio (10-20) Glucose (70-99) mg/dl Calcium (8.5-10.1) mg/dl Phosphorus (2.5-4.9) mg/dl Magnesium 2.1 (1.8-2.4) mg/dl Procalcitonin < 0.05 (0-0.5) ng/ml Medications Administered Current Inpatient Medications Acetaminophen (Acetaminophen 325 Mg Tab) 650 mg PO Q4H PRN PRN Reason: Pain or Fever Stop: 08/15/20 18:39 Last Admin: 07/22/20 08:17 Dose: 650 mg Documented by: Alprazolam (Alprazolam 0.5 Mg Tablet) 0.5 mg PO Q8 PRN PRN Reason: Anxiety Stop: 08/15/20 18:39 Last Admin: 07/21/20 20:35 Dose: 0.5 mg Documented by: Amphetamine/Dextroamphetamine (Amphetamine Asp/Sulf/Dextramph 10 Mg Tab) 30 mg PO 0730,1130 [facility] Stop: 07/31/20 07:29 Last Admin: 07/22/20 07:45 Dose: 30 mg Documented by: Amphetamine/Dextroamphetamine (Amphetamine Asp/Sulf/Dextramph 5 Mg Tab) 15 mg PO 1630 [facility] Stop: 07/31/20 16:29 Last Admin: 07/21/20 16:46 Dose: 15 mg Documented by: Bupropion HCl (Bupropion Xl 300 Mg Tabcr) 300 mg PO DAILY [facility] Stop: 08/16/20 08:59 Last Admin: 07/22/20 07:46 Dose: 300 mg Documented by: Cyclobenzaprine HCl (Cyclobenzaprine Hcl 10 Mg Tab) 10 mg PO HS PRN PRN Reason: Muscle Spasm Stop: 08/15/20 18:56 Last Admin: 07/19/20 09:06 Dose: 10 mg Documented by: Dicyclomine HCl (Dicyclomine Hcl 10 Mg Cap) 10 mg PO QID PRN PRN Reason: Abdominal Discomfort Stop: 08/15/20 18:39 Doxycycline Hyclate (Doxycycline Hyclate 100 Mg Cap) 100 mg PO BID [facility]; Protocol Stop: 07/28/20 15:44 Last Admin: 07/22/20 07:45 Dose: 100 mg Documented by: Enoxaparin Sodium (Enoxaparin Inj 40 Mg/0.4 Ml Syr) 40 mg SQ Q12H [facility] Stop: 08/15/20 19:59 Last Admin: 07/22/20 07:48 Dose: 40 mg Documented by: Gabapentin (Gabapentin 600 Mg Tab) 600 mg PO HS [facility] Stop: 08/15/20 20:59 Last Admin: 07/21/20 19:54 Dose: 600 mg Documented by: Guaifenesin (Guaifenesin 200 Mg Tab) 200 mg PO Q6H [facility] Stop: 08/16/20 19:59 Last Admin: 07/22/20 07:46 Dose: 200 mg Documented by: Guaifenesin (Guaifenesin 600 Mg Tabcr) 600 mg PO Q12 [facility] Stop: 08/20/20 08:59 Last Admin: 07/22/20 07:47 Dose: 600 mg Documented by: Hydrochlorothiazide (Hydrochlorothiazide 25 Mg Tab) 25 mg PO DAILY [facility] Stop: 08/16/20 08:59 Last Admin: 07/22/20 07:46 Dose: 25 mg Documented by: Dexamethasone 6 mg/ Syringe 1.5 mls @ 1 mls/min IV DAILY [facility] Stop: 07/27/20 15:59 Last Admin: 07/22/20 07:45 Dose: 1 mls/min Documented by: Ceftriaxone Sodium 2,000 mg/ (Dextrose) 70 mls @ 100 mls/hr IV Q24H [facility]; Protocol Stop: 07/28/20 15:59 Last Infusion: 07/21/20 17:42 Dose: Infused Documented by: Lactobacillus Acidoph/Casei/Rhamnos (Advanced Probiotic 1250 Mg Capsule) 2 cap PO DAILY [facility] Stop: 08/20/20 15:44 Last Admin: 07/22/20 07:46 Dose: 2 cap Documented by: Loperamide HCl (Loperamide Hcl 2 Mg Cap) 2 mg PO Q8H PRN PRN Reason: Diarrhea Stop: 08/16/20 09:05 Last Admin: 07/18/20 11:29 Dose: 2 mg Documented by: Nitroglycerin (Nitroglycerin Sl 0.4 Mg/Tab Tab) 0.4 mg SL UD PRN PRN Reason: Chest Pain Stop: 08/15/20 18:39 Pantoprazole Sodium (Pantoprazole 40 Mg Tab) 40 mg PO BID [facility] Stop: 08/15/20 20:59 Last Admin: 07/22/20 07:45 Dose: 40 mg Documented by: Tramadol HCl (Tramadol Hcl 50 Mg Tablet) 25 - 50 mg PO Q4H PRN PRN Reason: Pain Stop: 08/16/20 21:45 Last Admin: 07/19/20 08:46 Dose: 50 mg Documented by: Trazodone HCl (Trazodone Hcl 50 Mg Tab) 50 mg PO HS [facility] Stop: 08/15/20 20:59 Last Admin: 07/21/20 19:45 Dose: 50 mg Documented by: Vortioxetine (Vortioxetine Hydrobromide) 1 ea PO DAILY [facility] Stop: 08/20/20 08:59 Last Admin: 07/22/20 07:47 Dose: 1 ea Documented by:
[2020-07-22] MEDS ORDERED: FUROSEMIDE 10 MG in SYRINGE 0 ML IV ONE (09:00)
[2020-07-22] MEDS: cefTRIAXone SODIUM 2,000 MG in DEXTROSE 5% 50 ML IV SCH (16:33)
[2020-07-22] MEDS: AMPHETAMINE ASP/SULF/DEXTRAMPH 5 MG TAB PO SCH (16:34)
[2020-07-22] MEDS ORDERED: BENZONATATE 100 MG CAPSULE PO PRN (20:33)
[2020-07-22] MEDS: GABAPENTIN 600 MG TAB PO SCH (20:35)
[2020-07-22] MEDS: traZODone HCL 50 MG TAB PO SCH (20:35)
[2020-07-22] MEDS: ALPRAZolam 0.5 MG TABLET PO PRN (20:43)
[2020-07-23] MEDS: guaiFENesin 200 MG TAB PO SCH ×4 (03:00→19:50)
[2020-07-23 06:18] LABS: Hemoglobin 16.2 g/dL (12.0-16.0); Mean Corpuscular Hgb Conc 33.1 g/dL (32-36); Mean Corpuscular Volume 87.7 fL (80-100); Mean Platelet Volume 10.6 fL (7.4-10.4); Platelet Count 418 K/uL (130-400); RDW Coefficient of Variation 15.9 % (11.5-14.5); RDW Standard Deviation 50.8 fL (36.4-46.3); Red Blood Count 5.59 M/uL (4.2-5.4)
[2020-07-23 06:29] LABS: BUN Creatinine Ratio 38.5 (10-20); Calcium 9.7 mg/dl (8.5-10.1); Creatinine Clr Calc Pharmacy 86.2 ml/min; Est GFR (African American) 97.8; Est GFR (Non-African American) 84.4; Magnesium 1.9 mg/dl (1.8-2.4)
[2020-07-23 06:35] LABS: Phosphorus 3.9 mg/dl (2.5-4.9)
[2020-07-23] MEDS ORDERED: MAGNESIUM SULFATE / D5W 1 GM/100 ML BAG IV ONE (08:13)
--- NOTE | 2020-07-23 08:16 | Hospitalist Progress Note ---
Date of Service July 23, 2020 Assessment & Plan (1) Pneumonia due to 2019 novel coronavirus: (2) Hypoxia: Acute respiratory failure with hypoxia Present on admission with worsening SOB and cough CXR showed Multifocal airspace consolidation is typical for pneumonia Continue Dexamethasone 6mg IV daily and remdesivir daily (Remdesevir finished) Continue monitor LFT while on Remdesivir Inflammatory markers with ESR 36-><44 , C-reactive from 2.9 to 1.1 -> 2.14 and ferritin normal Pt said that her symptoms has been for about 1 week and was tested positive covid 19 on 07/13 Since symptoms as been going for 1 week, not a candidate for convalescent plasma Currently she is on 1L NC but was on 4.5 L this AM, will continue titrate Continue encouraged pt to prone Continue monitor close Continue guaifenesin for the cough, incentive spirometry and flutter valve CT PE - negative for PE Diarrhea Mostly due to covid 19 stool cultx ordered Continue loperamide BID PRN improved Chest pain Mostly related to costochondritis due to cough from covid 19 Troponin x 3 negative EKG showed no ischemic changes Clinically stable Obtained CT PE, negat. for PE Anemia iron def status post EGD, which is showing large hiatal hernia with Thomas erosions. On iron infusion outpatient Hgb stable Transaminitis Possible related to acute illness Elevated LFT with AST 82 and ALT 105 and ALk phos 160 Liver enzymes trending down with AST 65->44-> 32, ALT 93->77->62 Continued to monitor CMP while on Remdesivir Depression Continue home medication of Adderall and bupropion and trazodone and Trintellix. DVT prophylaxis on Lovenox Admission and Anticipated Discharge Date Admission Date: July 16, 2020 Subjective Pt was seen and examined for follow up SOB due to COVID 19 Laying in bed with no distress Feels that breathing has improved, but feels very weak She is on 1 L NC She has loose stools, started prior to admission Denies any chest pain, palpitation, dizziness and fever Review of Systems Review of Systems: All systems reviewed & are unremarkable except as noted in HPI & below Constitutional: no fever and no chills Respiratory: + cough and + dyspnea (improved) Cardiovascular: no chest pain and no palpitations Gastrointestinal: no abdominal pain Physical Exam Physical Exam: General- No acute distress Head- atraumatic Eyes- PERRL, EOMI, ENT- oropharynx clear Neck- supple, no JVD Lungs- CTAB, no rhonchi, no wheezing Heart- regular rhythm; no murmur Abdomen- normal bowel sounds, soft, nontender Extremities- no calf tenderness Neuro- alert, oriented x 3; PERRL, EOMI; no facial palsy; no dysarthria, moves extremities Skin- warm & dry Results & Data Results & Data ([facility]) Vital Signs (Past 12 Hours) Vital Signs Temp Pulse Pulse Resp BP BP Pulse Ox 07/23/20 07:27 36.4 C L 75 19 124/78 93 07/23/20 04:05 36.5 C 69 18 144/99 H 96 07/23/20 00:06 36.6 C 73 21 116/77 92 07/23/20 00:00 73 Laboratory Results 07/23/20 07/23/20 Range/Units 05:47 05:47 WBC 7.10 (4.8-10.8) K/uL RBC 5.59 H (4.2-5.4) M/uL Hgb 16.2 H (12.0-16.0) g/dL Hct 49.0 H (37-47) % MCV 87.7 (80-100) fL MCH 29.0 (25-34) pg MCHC 33.1 (32-36) g/dL RDW Std Deviation 50.8 H (36.4-46.3) fL RDW Coeff of Brenda 15.9 H (11.5-14.5) % Plt Count 418 H (130-400) K/uL MPV 10.6 H (7.4-10.4) fL Sodium 135 L (136-145) mmol/L Potassium 4.0 (3.5-5.1) mmol/L Chloride 101 (98-107) mmol/L Carbon Dioxide 29 (21-32) mmol/L Anion Gap 4.0 (3-11) BUN 30 H (7-18) mg/dl Creatinine 0.78 (0.6-1.2) mg/dl Est Cr Clr Drug Dosing 86.2 ml/min Est GFR ( Amer) 97.8 Est GFR (Non-Af Amer) 84.4 BUN/Creatinine Ratio 38.5 H (10-20) Glucose 128 H (70-99) mg/dl Calcium 9.7 (8.5-10.1) mg/dl Phosphorus 3.9 (2.5-4.9) mg/dl Magnesium 1.9 (1.8-2.4) mg/dl Medications Administered Current Inpatient Medications Acetaminophen (Acetaminophen 325 Mg Tab) 650 mg PO Q4H PRN PRN Reason: Pain or Fever Stop: 08/15/20 18:39 Last Admin: 07/22/20 20:43 Dose: 650 mg Documented by: Alprazolam (Alprazolam 0.5 Mg Tablet) 0.5 mg PO Q8 PRN PRN Reason: Anxiety Stop: 08/15/20 18:39 Last Admin: 07/22/20 20:43 Dose: 0.5 mg Documented by: Amphetamine/Dextroamphetamine (Amphetamine Asp/Sulf/Dextramph 10 Mg Tab) 30 mg PO 0730,1130 [facility] Stop: 07/31/20 07:29 Last Admin: 07/22/20 12:05 Dose: 30 mg Documented by: Amphetamine/Dextroamphetamine (Amphetamine Asp/Sulf/Dextramph 5 Mg Tab) 15 mg PO 1630 [facility] Stop: 07/31/20 16:29 Last Admin: 07/22/20 16:34 Dose: 15 mg Documented by: Benzonatate (Benzonatate 100 Mg Capsule) 100 mg PO TID PRN PRN Reason: Cough Stop: 08/21/20 20:59 Bupropion HCl (Bupropion Xl 300 Mg Tabcr) 300 mg PO DAILY [facility] Stop: 08/16/20 08:59 Last Admin: 07/22/20 07:46 Dose: 300 mg Documented by: Cyclobenzaprine HCl (Cyclobenzaprine Hcl 10 Mg Tab) 10 mg PO HS PRN PRN Reason: Muscle Spasm Stop: 08/15/20 18:56 Last Admin: 07/19/20 09:06 Dose: 10 mg Documented by: Dicyclomine HCl (Dicyclomine Hcl 10 Mg Cap) 10 mg PO QID PRN PRN Reason: Abdominal Discomfort Stop: 08/15/20 18:39 Doxycycline Hyclate (Doxycycline Hyclate 100 Mg Cap) 100 mg PO BID [facility]; Protocol Stop: 07/28/20 15:44 Last Admin: 07/22/20 20:35 Dose: 100 mg Documented by: Enoxaparin Sodium (Enoxaparin Inj 40 Mg/0.4 Ml Syr) 40 mg SQ Q12H [facility] Stop: 08/15/20 19:59 Last Admin: 07/22/20 20:35 Dose: 40 mg Documented by: Gabapentin (Gabapentin 600 Mg Tab) 600 mg PO HS [facility] Stop: 08/15/20 20:59 Last Admin: 07/22/20 20:35 Dose: 600 mg Documented by: Guaifenesin (Guaifenesin 200 Mg Tab) 200 mg PO Q6H [facility] Stop: 08/16/20 19:59 Last Admin: 07/23/20 03:00 Dose: 200 mg Documented by: Guaifenesin (Guaifenesin 600 Mg Tabcr) 600 mg PO Q12 [facility] Stop: 08/20/20 08:59 Last Admin: 07/22/20 20:35 Dose: 600 mg Documented by: Hydrochlorothiazide (Hydrochlorothiazide 25 Mg Tab) 25 mg PO DAILY [facility] Stop: 08/16/20 08:59 Last Admin: 07/22/20 07:46 Dose: 25 mg Documented by: Dexamethasone 6 mg/ Syringe 1.5 mls @ 1 mls/min IV DAILY [facility] Stop: 07/27/20 15:59 Last Admin: 07/22/20 07:45 Dose: 1 mls/min Documented by: Ceftriaxone Sodium 2,000 mg/ (Dextrose) 70 mls @ 100 mls/hr IV Q24H [facility]; Protocol Stop: 07/28/20 15:59 Last Infusion: 07/22/20 17:20 Dose: Infused Documented by: Magnesium Sulfate/Dextrose (Magnesium Sulfate / D5w) 1 gm in 100 mls @ 50 mls/hr IV ONE ONE Stop: 07/23/20 10:12 Lactobacillus Acidoph/Casei/Rhamnos (Advanced Probiotic 1250 Mg Capsule) 2 cap PO DAILY [facility] Stop: 08/20/20 15:44 Last Admin: 07/22/20 07:46 Dose: 2 cap Documented by: Loperamide HCl (Loperamide Hcl 2 Mg Cap) 2 mg PO Q8H PRN PRN Reason: Diarrhea Stop: 08/16/20 09:05 Last Admin: 07/18/20 11:29 Dose: 2 mg Documented by: Nitroglycerin (Nitroglycerin Sl 0.4 Mg/Tab Tab) 0.4 mg SL UD PRN PRN Reason: Chest Pain Stop: 08/15/20 18:39 Pantoprazole Sodium (Pantoprazole 40 Mg Tab) 40 mg PO BID [facility] Stop: 08/15/20 20:59 Last Admin: 07/22/20 20:35 Dose: 40 mg Documented by: Tramadol HCl (Tramadol Hcl 50 Mg Tablet) 25 - 50 mg PO Q4H PRN PRN Reason: Pain Stop: 08/16/20 21:45 Last Admin: 07/19/20 08:46 Dose: 50 mg Documented by: Trazodone HCl (Trazodone Hcl 50 Mg Tab) 50 mg PO HS [facility] Stop: 08/15/20 20:59 Last Admin: 07/22/20 20:35 Dose: 50 mg Documented by: Vortioxetine (Vortioxetine Hydrobromide) 1 ea PO DAILY [facility] Stop: 08/20/20 08:59 Last Admin: 07/22/20 07:47 Dose: 1 ea Documented by:
[2020-07-23] MEDS: dexAMETHasone 6 MG in SYRINGE 0 ML IV SCH (08:20)
[2020-07-23] MEDS: guaiFENesin 600 MG TABCR PO SCH ×2 (08:20→20:48)
[2020-07-23] MEDS: hydroCHLOROthiazide 25 MG TAB PO SCH (08:20)
[2020-07-23] MEDS: DOXYCYCLINE HYCLATE 100 MG CAP PO SCH ×2 (08:20→20:47)
[2020-07-23] MEDS: buPROPion XL 300 MG TABCR PO SCH (08:20)
[2020-07-23] MEDS: ADVANCED PROBIOTIC 1250 MG CAPSULE PO SCH (08:21)
[2020-07-23] MEDS: PANTOprazole 40 MG TAB PO SCH ×2 (08:21→20:48)
[2020-07-23] MEDS: VORTIOXETINE HYDROBROMIDE PO SCH (08:22)
[2020-07-23] MEDS: ENOXAPARIN INJ 40 MG/0.4 ML SYR SQ SCH ×2 (08:22→19:48)
[2020-07-23] MEDS: AMPHETAMINE ASP/SULF/DEXTRAMPH 10 MG TAB PO SCH ×2 (08:32→10:55)
[2020-07-23] MEDS ORDERED: COUGH DROP (SUGAR FREE) LOZ 24 LOZ/1 BOX BUCCAL ONE (14:03)
[2020-07-23] MEDS ORDERED: COUGH DROP (SUGAR FREE) LOZ 24 LOZ/1 BOX BUCCAL PRN (14:24)
[2020-07-23] MEDS: cefTRIAXone SODIUM 2,000 MG in DEXTROSE 5% 50 ML IV SCH (15:06)
[2020-07-23] MEDS: AMPHETAMINE ASP/SULF/DEXTRAMPH 5 MG TAB PO SCH (16:00)
[2020-07-23] MEDS: ACETAMINOPHEN 325 MG TAB PO PRN (20:46)
[2020-07-23] MEDS: ALPRAZolam 0.5 MG TABLET PO PRN (20:47)
[2020-07-23] MEDS: GABAPENTIN 600 MG TAB PO SCH (20:47)
[2020-07-23] MEDS: traZODone HCL 50 MG TAB PO SCH (20:49)
[2020-07-24] MEDS: guaiFENesin 200 MG TAB PO SCH ×4 (03:21→20:37)
--- NOTE | 2020-07-24 06:41 | Hospitalist Progress Note ---
Date of Service July 24, 2020 Assessment & Plan (1) Pneumonia due to 2019 novel coronavirus: (2) Hypoxia: Acute respiratory failure with hypoxia Present on admission with worsening SOB and cough CXR showed Multifocal airspace consolidation is typical for pneumonia Continue Dexamethasone 6mg IV daily and remdesivir daily (Remdesevir finished) Continue monitor LFT while on Remdesivir Inflammatory markers with ESR 36-><44 , C-reactive from 2.9 to 1.1 -> 2.14 and ferritin normal Pt said that her symptoms has been for about 1 week and was tested positive covid 19 on 07/13 Since symptoms as been going for 1 week, not a candidate for convalescent plasma CT PE - negative for PE Yesterday pt was on 1L NC in the afternoon but was on 4.5 L in the morning Currently on RA, will obtain 2 step test Continue encouraged pt to prone Continue monitor close Continue guaifenesin for the cough, incentive spirometry and flutter valve Diarrhea Mostly due to covid 19 stool cultx ordered Continue loperamide BID PRN improved Chest pain Mostly related to costochondritis due to cough from covid 19 Troponin x 3 negative EKG showed no ischemic changes Clinically stable Obtained CT PE, negat. for PE Resolved Anemia iron def status post EGD, which is showing large hiatal hernia with Thomas erosions. On iron infusion outpatient Hgb stable Transaminitis Possible related to acute illness Elevated LFT with AST 82 and ALT 105 and ALk phos 160 Liver enzymes trending down with AST 65->44-> 32, ALT 93->77->62 Continued to monitor CMP while on Remdesivir Depression Continue home medication of Adderall and bupropion and trazodone and Trintellix. DVT prophylaxis on Lovenox Admission and Anticipated Discharge Date Admission Date: July 16, 2020 Subjective Pt was seen and examined for follow up of SOB due to COVID 19 Laying in bed with no distress Feels that breathing has improved, but feels very weak She is currently on RA Gets quite tachycardic with any movement/ mild exertion Denies any chest pain, palpitation, dizziness and fever Review of Systems Review of Systems: All systems reviewed & are unremarkable except as noted in HPI & below Constitutional: no fever and no chills Respiratory: + cough and + dyspnea (improved) Cardiovascular: no chest pain and no palpitations Gastrointestinal: no abdominal pain, no nausea and no vomiting Physical Exam Physical Exam: General- No acute distress Head- atraumatic Eyes- PERRL, EOMI, ENT- oropharynx clear Neck- supple, no JVD Lungs- CTAB, no rhonchi, no wheezing Heart- regular rhythm; no murmur Abdomen- normal bowel sounds, soft, nontender Extremities- no calf tenderness Neuro- alert, oriented x 3; PERRL, EOMI; no facial palsy; no dysarthria, moves e xtremities Skin- warm & dry Results & Data Results & Data ([facility]) Vital Signs (Past 12 Hours) Vital Signs Temp Pulse Pulse Resp BP Pulse Ox 07/24/20 03:50 36.5 C 66 16 123/73 93 07/23/20 23:20 36.6 C 77 17 134/88 91 07/23/20 22:20 77 07/23/20 19:14 37.0 C 87 17 139/96 95 Laboratory Results 07/24/20 07/24/20 Range/Units 06:21 06:21 WBC 7.08 (4.8-10.8) K/uL RBC 5.33 (4.2-5.4) M/uL Hgb 15.9 (12.0-16.0) g/dL Hct 46.7 (37-47) % MCV 87.6 (80-100) fL MCH 29.8 (25-34) pg MCHC 34.0 (32-36) g/dL RDW Std Deviation 49.8 H (36.4-46.3) fL RDW Coeff of Brenda 15.6 H (11.5-14.5) % Plt Count 503 H (130-400) K/uL MPV 10.9 H (7.4-10.4) fL Sodium 133 L (136-145) mmol/L Potassium 3.4 L (3.5-5.1) mmol/L Chloride 100 (98-107) mmol/L Carbon Dioxide 27 (21-32) mmol/L Anion Gap 6.0 (3-11) BUN 32 H (7-18) mg/dl Creatinine 0.84 (0.6-1.2) mg/dl Est Cr Clr Drug Dosing 77.9 ml/min Est GFR ( Amer) 89.4 Est GFR (Non-Af Amer) 77.2 BUN/Creatinine Ratio 38.5 H (10-20) Glucose 119 H (70-99) mg/dl Calcium 9.5 (8.5-10.1) mg/dl Magnesium 2.2 (1.8-2.4) mg/dl Medications Administered Current Inpatient Medications Acetaminophen (Acetaminophen 325 Mg Tab) 650 mg PO Q4H PRN PRN Reason: Pain or Fever Stop: 08/15/20 18:39 Last Admin: 07/23/20 20:46 Dose: 650 mg Documented by: Alprazolam (Alprazolam 0.5 Mg Tablet) 0.5 mg PO Q8 PRN PRN Reason: Anxiety Stop: 08/15/20 18:39 Last Admin: 07/23/20 20:47 Dose: 0.5 mg Documented by: Amphetamine/Dextroamphetamine (Amphetamine Asp/Sulf/Dextramph 10 Mg Tab) 30 mg PO 0730,1130 [facility] Stop: 07/31/20 07:29 Last Admin: 07/23/20 10:55 Dose: 30 mg Documented by: Amphetamine/Dextroamphetamine (Amphetamine Asp/Sulf/Dextramph 5 Mg Tab) 15 mg PO 1630 [facility] Stop: 07/31/20 16:29 Last Admin: 07/23/20 16:00 Dose: 15 mg Documented by: Benzonatate (Benzonatate 100 Mg Capsule) 100 mg PO TID PRN PRN Reason: Cough Stop: 08/21/20 20:59 Bupropion HCl (Bupropion Xl 300 Mg Tabcr) 300 mg PO DAILY [facility] Stop: 08/16/20 08:59 Last Admin: 07/23/20 08:20 Dose: 300 mg Documented by: Cyclobenzaprine HCl (Cyclobenzaprine Hcl 10 Mg Tab) 10 mg PO HS PRN PRN Reason: Muscle Spasm Stop: 08/15/20 18:56 Last Admin: 07/19/20 09:06 Dose: 10 mg Documented by: Dicyclomine HCl (Dicyclomine Hcl 10 Mg Cap) 10 mg PO QID PRN PRN Reason: Abdominal Discomfort Stop: 08/15/20 18:39 Doxycycline Hyclate (Doxycycline Hyclate 100 Mg Cap) 100 mg PO BID [facility]; Protocol Stop: 07/28/20 15:44 Last Admin: 07/23/20 20:47 Dose: 100 mg Documented by: Enoxaparin Sodium (Enoxaparin Inj 40 Mg/0.4 Ml Syr) 40 mg SQ Q12H [facility] Stop: 08/15/20 19:59 Last Admin: 07/23/20 19:48 Dose: 40 mg Documented by: Gabapentin (Gabapentin 600 Mg Tab) 600 mg PO HS [facility] Stop: 08/15/20 20:59 Last Admin: 07/23/20 20:47 Dose: 600 mg Documented by: Guaifenesin (Guaifenesin 200 Mg Tab) 200 mg PO Q6H [facility] Stop: 08/16/20 19:59 Last Admin: 07/24/20 03:21 Dose: Not Given Documented by: Guaifenesin (Guaifenesin 600 Mg Tabcr) 600 mg PO Q12 [facility] Stop: 08/20/20 08:59 Last Admin: 07/23/20 20:48 Dose: 600 mg Documented by: Hydrochlorothiazide (Hydrochlorothiazide 25 Mg Tab) 25 mg PO DAILY [facility] Stop: 08/16/20 08:59 Last Admin: 07/23/20 08:20 Dose: 25 mg Documented by: Dexamethasone 6 mg/ Syringe 1.5 mls @ 1 mls/min IV DAILY [facility] Stop: 07/27/20 15:59 Last Admin: 07/23/20 08:20 Dose: 1 mls/min Documented by: Ceftriaxone Sodium 2,000 mg/ (Dextrose) 70 mls @ 100 mls/hr IV Q24H [facility]; Protocol Stop: 07/28/20 15:59 Last Infusion: 07/23/20 15:46 Dose: Infused Documented by: Lactobacillus Acidoph/Casei/Rhamnos (Advanced Probiotic 1250 Mg Capsule) 2 cap PO DAILY [facility] Stop: 08/20/20 15:44 Last Admin: 07/23/20 08:21 Dose: 2 cap Documented by: Loperamide HCl (Loperamide Hcl 2 Mg Cap) 2 mg PO Q8H PRN PRN Reason: Diarrhea Stop: 08/16/20 09:05 Last Admin: 07/18/20 11:29 Dose: 2 mg Documented by: Menthol (Cough Drop (Sugar Free) Radha 24 Radha/1 Box) 1 radha BUCCAL Q6 PRN PRN Reason: Sore Throat Stop: 08/22/20 14:23 Nitroglycerin (Nitroglycerin Sl 0.4 Mg/Tab Tab) 0.4 mg SL UD PRN PRN Reason: Chest Pain Stop: 08/15/20 18:39 Pantoprazole Sodium (Pantoprazole 40 Mg Tab) 40 mg PO BID [facility] Stop: 08/15/20 20:59 Last Admin: 07/23/20 20:48 Dose: 40 mg Documented by: Tramadol HCl (Tramadol Hcl 50 Mg Tablet) 25 - 50 mg PO Q4H PRN PRN Reason: Pain Stop: 08/16/20 21:45 Last Admin: 07/19/20 08:46 Dose: 50 mg Documented by: Trazodone HCl (Trazodone Hcl 50 Mg Tab) 50 mg PO HS [facility] Stop: 08/15/20 20:59 Last Admin: 07/23/20 20:49 Dose: 50 mg Documented by: Vortioxetine (Vortioxetine Hydrobromide) 1 ea PO DAILY [facility] Stop: 08/20/20 08:59 Last Admin: 07/23/20 08:22 Dose: 1 ea Documented by:
[2020-07-24 06:59] LABS: Hematocrit (blood only) 46.7 % (37-47); Hemoglobin 15.9 g/dL (12.0-16.0); Mean Corpuscular Hemoglobin 29.8 pg (25-34); Mean Corpuscular Volume 87.6 fL (80-100); Mean Platelet Volume 10.9 fL (7.4-10.4); Platelet Count 503 K/uL (130-400); RDW Coefficient of Variation 15.6 % (11.5-14.5); RDW Standard Deviation 49.8 fL (36.4-46.3); Red Blood Count 5.33 M/uL (4.2-5.4); White Blood Count 7.08 K/uL (4.8-10.8)
[2020-07-24 07:25] LABS: BUN Creatinine Ratio 38.5 (10-20); Calcium 9.5 mg/dl (8.5-10.1); Creatinine Clr Calc Pharmacy 77.9 ml/min; Est GFR (African American) 89.4; Est GFR (Non-African American) 77.2; Magnesium 2.2 mg/dl (1.8-2.4); Potassium 3.4 mmol/L (3.5-5.1)
[2020-07-24] MEDS: AMPHETAMINE ASP/SULF/DEXTRAMPH 10 MG TAB PO SCH ×2 (07:57→11:52)
[2020-07-24] MEDS: ENOXAPARIN INJ 40 MG/0.4 ML SYR SQ SCH ×2 (07:57→20:36)
[2020-07-24] MEDS: PANTOprazole 40 MG TAB PO SCH ×2 (08:01→20:38)
[2020-07-24] MEDS: dexAMETHasone 6 MG in SYRINGE 0 ML IV SCH (08:01)
[2020-07-24] MEDS: ADVANCED PROBIOTIC 1250 MG CAPSULE PO SCH (08:02)
[2020-07-24] MEDS: guaiFENesin 600 MG TABCR PO SCH ×2 (08:02→20:38)
[2020-07-24] MEDS: DOXYCYCLINE HYCLATE 100 MG CAP PO SCH ×2 (08:02→20:37)
[2020-07-24] MEDS: hydroCHLOROthiazide 25 MG TAB PO SCH (08:02)
[2020-07-24] MEDS: buPROPion XL 300 MG TABCR PO SCH (08:02)
[2020-07-24] MEDS: VORTIOXETINE HYDROBROMIDE PO SCH (08:03)
[2020-07-24] MEDS: CYCLOBENZAPRINE HCL 10 MG TAB PO PRN (08:03)
[2020-07-24] MEDS: ACETAMINOPHEN 325 MG TAB PO PRN (15:04)
[2020-07-24] MEDS: cefTRIAXone SODIUM 2,000 MG in DEXTROSE 5% 50 ML IV SCH (16:11)
[2020-07-24] MEDS: AMPHETAMINE ASP/SULF/DEXTRAMPH 5 MG TAB PO SCH (16:12)
[2020-07-24] MEDS: GABAPENTIN 600 MG TAB PO SCH (20:36)
[2020-07-24] MEDS: traZODone HCL 50 MG TAB PO SCH (20:39)
[2020-07-24] MEDS: ALPRAZolam 0.5 MG TABLET PO PRN (20:44)
[2020-07-24] MEDS ORDERED: FUROSEMIDE 10 MG in SYRINGE 0 ML IV ONE (21:16)
[2020-07-24] MEDS ORDERED: POTASSIUM CHLORIDE CRTAB 20 MEQ TABCR PO STA (21:17)
[2020-07-25] MEDS: guaiFENesin 200 MG TAB PO SCH ×4 (02:47→20:32)
[2020-07-25] MEDS: ENOXAPARIN INJ 40 MG/0.4 ML SYR SQ SCH ×2 (07:32→20:31)
--- NOTE | 2020-07-25 07:32 | Hospitalist Progress Note ---
Date of Service July 25, 2020 Assessment & Plan (1) Pneumonia due to 2019 novel coronavirus: (2) Hypoxia: Acute respiratory failure with hypoxia Present on admission with worsening SOB and cough CXR showed Multifocal airspace consolidation is typical for pneumonia Continue Dexamethasone 6mg IV daily and remdesivir daily (Remdesevir finished) Continue monitor LFT while on Remdesivir Inflammatory markers with ESR 36-><44 , C-reactive from 2.9 to 1.1 -> 2.14 and ferritin normal Pt said that her symptoms has been for about 1 week and was tested positive covid 19 on 07/13 Since symptoms as been going for 1 week, not a candidate for convalescent plasma CT PE - negative for PE 07/23 pt was on 1L NC in the afternoon but was on 4.5 L in the morning Currently on RA, obtained 2 step test - no need for suppl. O2 However pt hypoxic overnight to 84%, will obtain nocturnal hypoxia test Continue encouraged pt to prone Continue monitor close Continue guaifenesin for the cough, incentive spirometry and flutter valve Diarrhea Mostly due to covid 19 stool cultx ordered Continue loperamide BID PRN improved Chest pain Mostly related to costochondritis due to cough from covid 19 Troponin x 3 negative EKG showed no ischemic changes Clinically stable Obtained CT PE, negat. for PE Resolved Anemia iron def status post EGD, which is showing large hiatal hernia with Thomas erosions. On iron infusion outpatient Hgb stable Transaminitis Possible related to acute illness Elevated LFT with AST 82 and ALT 105 and ALk phos 160 Liver enzymes trending down with AST 65->44-> 32, ALT 93->77->62 Continued to monitor CMP while on Remdesivir Depression Continue home medication of Adderall and bupropion and trazodone and Trintellix. DVT prophylaxis on Lovenox Admission and Anticipated Discharge Date Admission Date: July 16, 2020 Subjective Pt was seen and examined for follow up of SOB due to COVID 19 Laying in bed with no distress Feels that breathing has improved, but feels very weak She is currently on RA Gets quite tachycardic with any movement/ mild exertion Overnight hypoxic to 84% Denies any chest pain, palpitation, dizziness and fever Review of Systems Review of Systems: All systems reviewed & are unremarkable except as noted in HPI & below Constitutional: no fever and no chills Respiratory: + cough and + dyspnea (improved) Cardiovascular: no chest pain and no palpitations Gastrointestinal: no abdominal pain, no nausea and no vomiting Physical Exam Physical Exam: General- No acute distress Head- atraumatic Eyes- PERRL, EOMI, ENT- oropharynx clear Neck- supple, no JVD Lungs- CTAB, no rhonchi, no wheezing Heart- regular rhythm; no murmur Abdomen- normal bowel sounds, soft, nontender Extremities- no calf tenderness Neuro- alert, oriented x 3; PERRL, EOMI; no facial palsy; no dysarthria, moves extremities Skin- warm & dry Results & Data Results & Data ([facility]) Vital Signs (Past 12 Hours) Vital Signs Temp Pulse Resp BP Pulse Ox 07/25/20 07:27 92 07/25/20 07:26 36.6 C 77 20 117/74 84 L 07/25/20 03:18 36.4 C L 78 18 116/73 86 L 07/24/20 23:22 36.4 C L 86 18 129/79 86 L Laboratory Results 07/25/20 Range/Units 06:30 Sodium 137 (136-145) mmol/L Potassium 3.6 (3.5-5.1) mmol/L Chloride 104 (98-107) mmol/L Carbon Dioxide 27 (21-32) mmol/L Anion Gap 6.0 (3-11) BUN 35 H (7-18) mg/dl Creatinine 0.84 (0.6-1.2) mg/dl Est Cr Clr Drug Dosing 77.0 ml/min Est GFR ( Amer) 89.4 Est GFR (Non-Af Amer) 77.2 BUN/Creatinine Ratio 41.7 H (10-20) Glucose 117 H (70-99) mg/dl Calcium 9.0 (8.5-10.1) mg/dl Magnesium 2.2 (1.8-2.4) mg/dl Medications Administered Current Inpatient Medications Acetaminophen (Acetaminophen 325 Mg Tab) 650 mg PO Q4H PRN PRN Reason: Pain or Fever Stop: 08/15/20 18:39 Last Admin: 07/24/20 15:04 Dose: 650 mg Documented by: Alprazolam (Alprazolam 0.5 Mg Tablet) 0.5 mg PO Q8 PRN PRN Reason: Anxiety Stop: 08/15/20 18:39 Last Admin: 07/24/20 20:44 Dose: 0.5 mg Documented by: Amphetamine/Dextroamphetamine (Amphetamine Asp/Sulf/Dextramph 10 Mg Tab) 30 mg PO 0730,1130 [facility] Stop: 07/31/20 07:29 Last Admin: 07/24/20 11:52 Dose: 30 mg Documented by: Amphetamine/Dextroamphetamine (Amphetamine Asp/Sulf/Dextramph 5 Mg Tab) 15 mg PO 1630 [facility] Stop: 07/31/20 16:29 Last Admin: 07/24/20 16:12 Dose: 15 mg Documented by: Benzonatate (Benzonatate 100 Mg Capsule) 100 mg PO TID PRN PRN Reason: Cough Stop: 08/21/20 20:59 Bupropion HCl (Bupropion Xl 300 Mg Tabcr) 300 mg PO DAILY [facility] Stop: 08/16/20 08:59 Last Admin: 07/24/20 08:02 Dose: 300 mg Documented by: Cyclobenzaprine HCl (Cyclobenzaprine Hcl 10 Mg Tab) 10 mg PO HS PRN PRN Reason: Muscle Spasm Stop: 08/15/20 18:56 Last Admin: 07/24/20 08:03 Dose: 10 mg Documented by: Dicyclomine HCl (Dicyclomine Hcl 10 Mg Cap) 10 mg PO QID PRN PRN Reason: Abdominal Discomfort Stop: 08/15/20 18:39 Doxycycline Hyclate (Doxycycline Hyclate 100 Mg Cap) 100 mg PO BID [facility]; Protocol Stop: 07/28/20 15:44 Last Admin: 07/24/20 20:37 Dose: 100 mg Documented by: Enoxaparin Sodium (Enoxaparin Inj 40 Mg/0.4 Ml Syr) 40 mg SQ Q12H [facility] Stop: 08/15/20 19:59 Last Admin: 07/24/20 20:36 Dose: 40 mg Documented by: Gabapentin (Gabapentin 600 Mg Tab) 600 mg PO HS [facility] Stop: 08/15/20 20:59 Last Admin: 07/24/20 20:36 Dose: 600 mg Documented by: Guaifenesin (Guaifenesin 200 Mg Tab) 200 mg PO Q6H [facility] Stop: 08/16/20 19:59 Last Admin: 07/25/20 02:47 Dose: 200 mg Documented by: Guaifenesin (Guaifenesin 600 Mg Tabcr) 600 mg PO Q12 [facility] Stop: 08/20/20 08:59 Last Admin: 07/24/20 20:38 Dose: 600 mg Documented by: Hydrochlorothiazide (Hydrochlorothiazide 25 Mg Tab) 25 mg PO DAILY [facility] Stop: 08/16/20 08:59 Last Admin: 07/24/20 08:02 Dose: 25 mg Documented by: Dexamethasone 6 mg/ Syringe 1.5 mls @ 1 mls/min IV DAILY [facility] Stop: 07/27/20 15:59 Last Admin: 07/24/20 08:01 Dose: 1 mls/min Documented by: Ceftriaxone Sodium 2,000 mg/ (Dextrose) 70 mls @ 100 mls/hr IV Q24H [facility]; Protocol Stop: 07/28/20 15:59 Last Infusion: 07/24/20 16:55 Dose: Infused Documented by: Lactobacillus Acidoph/Casei/Rhamnos (Advanced Probiotic 1250 Mg Capsule) 2 cap PO DAILY [facility] Stop: 08/20/20 15:44 Last Admin: 07/24/20 08:02 Dose: 2 cap Documented by: Loperamide HCl (Loperamide Hcl 2 Mg Cap) 2 mg PO Q8H PRN PRN Reason: Diarrhea Stop: 08/16/20 09:05 Last Admin: 07/18/20 11:29 Dose: 2 mg Documented by: Menthol (Cough Drop (Sugar Free) Radha 24 Radha/1 Box) 1 radha BUCCAL Q6 PRN PRN Reason: Sore Throat Stop: 08/22/20 14:23 Nitroglycerin (Nitroglycerin Sl 0.4 Mg/Tab Tab) 0.4 mg SL UD PRN PRN Reason: Chest Pain Stop: 08/15/20 18:39 Pantoprazole Sodium (Pantoprazole 40 Mg Tab) 40 mg PO BID [facility] Stop: 08/15/20 20:59 Last Admin: 07/24/20 20:38 Dose: 40 mg Documented by: Tramadol HCl (Tramadol Hcl 50 Mg Tablet) 25 - 50 mg PO Q4H PRN PRN Reason: Pain Stop: 08/16/20 21:45 Last Admin: 07/19/20 08:46 Dose: 50 mg Documented by: Trazodone HCl (Trazodone Hcl 50 Mg Tab) 50 mg PO HS [facility] Stop: 08/15/20 20:59 Last Admin: 07/24/20 20:39 Dose: 50 mg Documented by: Vortioxetine (Vortioxetine Hydrobromide) 1 ea PO DAILY [facility] Stop: 08/20/20 08:59 Last Admin: 07/24/20 08:03 Dose: 1 ea Documented by:
[2020-07-25] MEDS: AMPHETAMINE ASP/SULF/DEXTRAMPH 10 MG TAB PO SCH ×2 (07:33→11:30)
[2020-07-25 07:48] LABS: BUN Creatinine Ratio 41.7 (10-20); Est GFR (African American) 89.4; Est GFR (Non-African American) 77.2; Magnesium 2.2 mg/dl (1.8-2.4); Potassium 3.6 mmol/L (3.5-5.1)
[2020-07-25] MEDS: VORTIOXETINE HYDROBROMIDE PO SCH (08:22)
[2020-07-25] MEDS: PANTOprazole 40 MG TAB PO SCH ×2 (08:23→20:31)
[2020-07-25] MEDS: dexAMETHasone 6 MG in SYRINGE 0 ML IV SCH (08:23)
[2020-07-25] MEDS: DOXYCYCLINE HYCLATE 100 MG CAP PO SCH ×2 (08:23→20:31)
[2020-07-25] MEDS: hydroCHLOROthiazide 25 MG TAB PO SCH (08:23)
[2020-07-25] MEDS: guaiFENesin 600 MG TABCR PO SCH ×2 (08:23→20:31)
[2020-07-25] MEDS: ADVANCED PROBIOTIC 1250 MG CAPSULE PO SCH (08:23)
[2020-07-25] MEDS: buPROPion XL 300 MG TABCR PO SCH (08:23)
[2020-07-25] MEDS: cefTRIAXone SODIUM 2,000 MG in DEXTROSE 5% 50 ML IV SCH (15:12)
[2020-07-25] MEDS: AMPHETAMINE ASP/SULF/DEXTRAMPH 5 MG TAB PO SCH (16:27)
[2020-07-25] MEDS ORDERED: POTASSIUM CHLORIDE CRTAB 20 MEQ TABCR PO STA (16:47)
[2020-07-25] MEDS ORDERED: XOPENEX/ATROVENT 1.25mg/0.5MG NEB COMBO NEB SCH (19:00)
[2020-07-25] MEDS: LEVALBUTEROL 1.25MG/0.5ML NEB INH SCH (19:34)
[2020-07-25] MEDS: IPRATROPIUM BROMIDE NEB SOLN 0.02% 2.5 ML VIAL INH SCH (19:34)
[2020-07-25] MEDS: GABAPENTIN 600 MG TAB PO SCH (20:31)
[2020-07-25] MEDS: traZODone HCL 50 MG TAB PO SCH (20:33)
[2020-07-25] MEDS: ALPRAZolam 0.5 MG TABLET PO PRN (20:34)
[2020-07-26] MEDS: LEVALBUTEROL 1.25MG/0.5ML NEB INH SCH ×2 (01:08→07:24)
[2020-07-26] MEDS: IPRATROPIUM BROMIDE NEB SOLN 0.02% 2.5 ML VIAL INH SCH ×2 (01:08→07:24)
[2020-07-26] MEDS: guaiFENesin 200 MG TAB PO SCH ×2 (02:45→07:43)
[2020-07-26 07:05] LABS: Hematocrit (blood only) 46.1 % (37-47); Hemoglobin 15.6 g/dL (12.0-16.0); Mean Corpuscular Hemoglobin 29.5 pg (25-34); Mean Corpuscular Hgb Conc 33.8 g/dL (32-36); Mean Corpuscular Volume 87.1 fL (80-100); Mean Platelet Volume 10.7 fL (7.4-10.4); Platelet Count 493 K/uL (130-400); RDW Coefficient of Variation 15.4 % (11.5-14.5); RDW Standard Deviation 49.1 fL (36.4-46.3); Red Blood Count 5.29 M/uL (4.2-5.4); White Blood Count 9.06 K/uL (4.8-10.8)
[2020-07-26 07:23] LABS: BUN Creatinine Ratio 38.1 (10-20); Calcium 9.4 mg/dl (8.5-10.1); Est GFR (African American) 77.1; Est GFR (Non-African American) 66.5; Magnesium 2.1 mg/dl (1.8-2.4); Phosphorus 3.5 mg/dl (2.5-4.9); Potassium 3.6 mmol/L (3.5-5.1)
[2020-07-26] MEDS ORDERED: IPRATROPIUM BROMIDE NEB SOLN 0.02% 2.5 ML VIAL INH PRN (07:39)
[2020-07-26] MEDS ORDERED: LEVALBUTEROL 1.25MG/0.5ML NEB INH PRN (07:39)
[2020-07-26] MEDS: AMPHETAMINE ASP/SULF/DEXTRAMPH 10 MG TAB PO SCH ×2 (07:42→10:53)
[2020-07-26] MEDS: ENOXAPARIN INJ 40 MG/0.4 ML SYR SQ SCH (07:43)
[2020-07-26] MEDS: buPROPion XL 300 MG TABCR PO SCH (09:16)
[2020-07-26] MEDS: dexAMETHasone 6 MG in SYRINGE 0 ML IV SCH (09:16)
[2020-07-26] MEDS: DOXYCYCLINE HYCLATE 100 MG CAP PO SCH (09:16)
[2020-07-26] MEDS: VORTIOXETINE HYDROBROMIDE PO SCH (09:17)
[2020-07-26] MEDS: ADVANCED PROBIOTIC 1250 MG CAPSULE PO SCH (09:18)
[2020-07-26] MEDS: hydroCHLOROthiazide 25 MG TAB PO SCH (09:18)
[2020-07-26] MEDS: guaiFENesin 600 MG TABCR PO SCH (09:18)
[2020-07-26] MEDS: PANTOprazole 40 MG TAB PO SCH (09:18)
[2020-07-26] MEDS ORDERED: POTASSIUM CHLORIDE CRTAB 20 MEQ TABCR PO STA (10:13)
--- NOTE | 2020-07-26 10:57 | Hospitalist Progress Note ---
Date of Service July 26, 2020 Assessment & Plan (1) Pneumonia due to 2019 novel coronavirus: (2) Hypoxia: Acute respiratory failure with hypoxia Present on admission with worsening SOB and cough CXR showed Multifocal airspace consolidation is typical for pneumonia Continue Dexamethasone 6mg IV daily and remdesivir daily (Remdesevir finished) Continue monitor LFT while on Remdesivir Inflammatory markers with ESR 36-><44 , C-reactive from 2.9 to 1.1 -> 2.14 and ferritin normal Pt said that her symptoms has been for about 1 week and was tested positive covid 19 on 07/13 Since symptoms as been going for 1 week, not a candidate for convalescent plasma CT PE - negative for PE 07/23 pt was on 1L NC in the afternoon but was on 4.5 L in the morning 07/26 Currently on RA, obtained 2 step test - no need for suppl. O2 However pt hypoxic overnight to 84%, obtained nocturnal hypoxia test - pt needs suppl. O2 w/ sleep (Rx given to CM) Continue encouraged pt to prone Continue monitor close Continue guaifenesin for the cough, incentive spirometry and flutter valve Diarrhea Mostly due to covid 19 stool cultx ordered Continue loperamide BID PRN improved Chest pain Mostly related to costochondritis due to cough from covid 19 Troponin x 3 negative EKG showed no ischemic changes Clinically stable Obtained CT PE, negat. for PE Resolved Anemia iron def status post EGD, which is showing large hiatal hernia with Thomas erosions. On iron infusion outpatient Hgb stable Transaminitis Possible related to acute illness Elevated LFT with AST 82 and ALT 105 and ALk phos 160 Liver enzymes trending down with AST 65->44-> 32, ALT 93->77->62 Continued to monitor CMP while on Remdesivir Depression Continue home medication of Adderall and bupropion and trazodone and Trintellix. DVT prophylaxis on Lovenox Admission and Anticipated Discharge Date Admission Date: July 16, 2020 Subjective Pt was seen and examined for follow up of SOB due to COVID 19 Laying in bed with no distress Feels that breathing has improved, but feels weak She is currently on RA Overnight hypoxic - will need suppl. O2 for HS Denies any chest pain, palpitation, dizziness and fever She is eager to go home. Review of Systems Review of Systems: All systems reviewed & are unremarkable except as noted in HPI & below Constitutional: no fever and no chills Respiratory: + cough and + dyspnea (improved) Cardiovascular: no chest pain and no palpitations Gastrointestinal: no abdominal pain, no nausea and no vomiting Physical Exam Physical Exam: General- No acute distress Head- atraumatic Eyes- PERRL, EOMI, ENT- oropharynx clear Neck- supple, no JVD Lungs- CTAB, no rhonchi, no wheezing Heart- regular rhythm; no murmur Abdomen- normal bowel sounds, soft, nontender Extremities- no calf tenderness Neuro- alert, oriented x 3; PERRL, EOMI; no facial palsy; no dysarthria, moves extremities Skin- warm & dry Results & Data Results & Data ([facility]) Vital Signs (Past 12 Hours) Vital Signs Pulse Pulse Resp BP Pulse Ox 07/26/20 09:43 71 07/26/20 07:50 91 H 20 163/85 H 96 07/26/20 07:24 80 18 96 Laboratory Results 07/26/20 07/26/20 Range/Units 06:35 06:35 WBC 9.06 (4.8-10.8) K/uL RBC 5.29 (4.2-5.4) M/uL Hgb 15.6 (12.0-16.0) g/dL Hct 46.1 (37-47) % MCV 87.1 (80-100) fL MCH 29.5 (25-34) pg MCHC 33.8 (32-36) g/dL RDW Std Deviation 49.1 H (36.4-46.3) fL RDW Coeff of Brenda 15.4 H (11.5-14.5) % Plt Count 493 H (130-400) K/uL MPV 10.7 H (7.4-10.4) fL Sodium 138 (136-145) mmol/L Potassium 3.6 (3.5-5.1) mmol/L Chloride 103 (98-107) mmol/L Carbon Dioxide 27 (21-32) mmol/L Anion Gap 8.0 (3-11) BUN 36 H (7-18) mg/dl Creatinine 0.95 (0.6-1.2) mg/dl Est Cr Clr Drug Dosing 68.0 ml/min Est GFR ( Amer) 77.1 Est GFR (Non-Af Amer) 66.5 BUN/Creatinine Ratio 38.1 H (10-20) Glucose 113 H (70-99) mg/dl Calcium 9.4 (8.5-10.1) mg/dl Phosphorus 3.5 (2.5-4.9) mg/dl Magnesium 2.1 (1.8-2.4) mg/dl Specimen Hemolysis Medications Administered Current Inpatient Medications Acetaminophen (Acetaminophen 325 Mg Tab) 650 mg PO Q4H PRN PRN Reason: Pain or Fever Stop: 08/15/20 18:39 Last Admin: 07/24/20 15:04 Dose: 650 mg Documented by: Alprazolam (Alprazolam 0.5 Mg Tablet) 0.5 mg PO Q8 PRN PRN Reason: Anxiety Stop: 08/15/20 18:39 Last Admin: 07/25/20 20:34 Dose: 0.5 mg Documented by: Amphetamine/Dextroamphetamine (Amphetamine Asp/Sulf/Dextramph 10 Mg Tab) 30 mg PO 0730,1130 [facility] Stop: 07/31/20 07:29 Last Admin: 07/26/20 07:42 Dose: 30 mg Documented by: Amphetamine/Dextroamphetamine (Amphetamine Asp/Sulf/Dextramph 5 Mg Tab) 15 mg PO 1630 [facility] Stop: 07/31/20 16:29 Last Admin: 07/25/20 16:27 Dose: 15 mg Documented by: Benzonatate (Benzonatate 100 Mg Capsule) 100 mg PO TID PRN PRN Reason: Cough Stop: 08/21/20 20:59 Bupropion HCl (Bupropion Xl 300 Mg Tabcr) 300 mg PO DAILY [facility] Stop: 08/16/20 08:59 Last Admin: 07/26/20 09:16 Dose: 300 mg Documented by: Cyclobenzaprine HCl (Cyclobenzaprine Hcl 10 Mg Tab) 10 mg PO HS PRN PRN Reason: Muscle Spasm Stop: 08/15/20 18:56 Last Admin: 07/24/20 08:03 Dose: 10 mg Documented by: Dicyclomine HCl (Dicyclomine Hcl 10 Mg Cap) 10 mg PO QID PRN PRN Reason: Abdominal Discomfort Stop: 08/15/20 18:39 Doxycycline Hyclate (Doxycycline Hyclate 100 Mg Cap) 100 mg PO BID [facility]; Protocol Stop: 07/28/20 15:44 Last Admin: 07/26/20 09:16 Dose: 100 mg Documented by: Enoxaparin Sodium (Enoxaparin Inj 40 Mg/0.4 Ml Syr) 40 mg SQ Q12H [facility] Stop: 08/15/20 19:59 Last Admin: 07/26/20 07:43 Dose: 40 mg Documented by: Gabapentin (Gabapentin 600 Mg Tab) 600 mg PO HS [facility] Stop: 08/15/20 20:59 Last Admin: 07/25/20 20:31 Dose: 600 mg Documented by: Guaifenesin (Guaifenesin 200 Mg Tab) 200 mg PO Q6H [facility] Stop: 08/16/20 19:59 Last Admin: 07/26/20 07:43 Dose: 200 mg Documented by: Guaifenesin (Guaifenesin 600 Mg Tabcr) 600 mg PO Q12 [facility] Stop: 08/20/20 08:59 Last Admin: 07/26/20 09:18 Dose: 600 mg Documented by: Hydrochlorothiazide (Hydrochlorothiazide 25 Mg Tab) 25 mg PO DAILY [facility] Stop: 08/16/20 08:59 Last Admin: 07/26/20 09:18 Dose: 25 mg Documented by: Dexamethasone 6 mg/ Syringe 1.5 mls @ 1 mls/min IV DAILY [facility] Stop: 07/27/20 15:59 Last Admin: 07/26/20 09:16 Dose: 1 mls/min Documented by: Ceftriaxone Sodium 2,000 mg/ (Dextrose) 70 mls @ 100 mls/hr IV Q24H [facility]; Protocol Stop: 07/28/20 15:59 Last Infusion: 07/25/20 16:14 Dose: Infused Documented by: Ipratropium [place] (Ipratropium [place] Neb Soln 0.02% 2.5 Ml Vial) 0.5 mg INH Q6R PRN PRN Reason: Shortness Of Breath Or Wheezing Stop: 08/24/20 18:59 Lactobacillus Acidoph/Casei/Rhamnos (Advanced Probiotic 1250 Mg Capsule) 2 cap PO DAILY [facility] Stop: 08/20/20 15:44 Last Admin: 07/26/20 09:18 Dose: 2 cap Documented by: Levalbuterol HCl (Levalbuterol 1.25mg/0.5ml Neb) 1.25 mg INH Q6R PRN PRN Reason: Shortness Of Breath Or Wheezing Stop: 08/24/20 18:59 Loperamide HCl (Loperamide Hcl 2 Mg Cap) 2 mg PO Q8H PRN PRN Reason: Diarrhea Stop: 08/16/20 09:05 Last Admin: 07/18/20 11:29 Dose: 2 mg Documented by: Menthol (Cough Drop (Sugar Free) Radha 24 Radha/1 Box) 1 radha BUCCAL Q6 PRN PRN Reason: Sore Throat Stop: 08/22/20 14:23 Nitroglycerin (Nitroglycerin Sl 0.4 Mg/Tab Tab) 0.4 mg SL UD PRN PRN Reason: Chest Pain Stop: 08/15/20 18:39 Pantoprazole Sodium (Pantoprazole 40 Mg Tab) 40 mg PO BID [facility] Stop: 08/15/20 20:59 Last Admin: 07/26/20 09:18 Dose: 40 mg Documented by: Tramadol HCl (Tramadol Hcl 50 Mg Tablet) 25 - 50 mg PO Q4H PRN PRN Reason: Pain Stop: 08/16/20 21:45 Last Admin: 07/19/20 08:46 Dose: 50 mg Documented by: Trazodone HCl (Trazodone Hcl 50 Mg Tab) 50 mg PO HS [facility] Stop: 08/15/20 20:59 Last Admin: 07/25/20 20:33 Dose: 50 mg Documented by: Vortioxetine (Vortioxetine Hydrobromide) 1 ea PO DAILY [facility] Stop: 08/20/20 08:59 Last Admin: 07/26/20 09:17 Dose: 1 ea Documented by:
--- NOTE | 2020-07-26 11:00 | Discharge Summary ---
Date of Service July 26, 2020 Admission HPI Per Admitting Provider This is a 59-year-old female with past medical history significant for iron deficiency anemia, chronic fatigue syndrome, major depression, attention deficit hyperactivity disorder, status post repair of ventral hernia, presents with shortness of breath and chest pain. The patient started symptoms of COVID on last with congestion, fever, loss of smell and taste and headache along with myalgias and arthralgias and poor appetite. She also had some diarrhea, no diarrhea today. Last couple of days the symptoms got worse. She was tested on 07/13/2020 and was positive for COVID. In the ER, she was saturating only 82% on room air, requiring oxygen. Otherwise, resting comfortably and hemodynamically stable. Denies any blurred vision, no earache, has nausea, no vomiting, has chest pain, chest pain is more with coughing. No abdominal pain. Normal bladder movements. No rash. Admission Exam Per Admitting Provider GENERAL: The patient is obese, currently not in acute distress. VITAL SIGNS: Temperature 37.2, pulse 84, respiratory rate 18, blood pressure 124/61, oxygen 82% on room air, currently 97%. HEENT: Pupils equal, round, reactive to light. Oral mucosa dry. NECK: No JVD. No neck masses. CARDIOVASCULAR: S1, S2 heard, regular rate and rhythm, no murmur, no gallop. RESPIRATORY SYSTEM: Normal AP diameter. No accessory muscle use. No wheezing, no crackles. ABDOMEN: Soft, bowel sounds present, nontender. No distention. CENTRAL NERVOUS SYSTEM: Cranial nerves II-XII grossly intact. Nonfocal. EXTREMITIES: No edema, no erythema. Principal Diagnosis Acute hypoxic respiratory failure with hypoxia due to COVID-19 pneumonia Nocturnal hypoxia Elevated LFTs Discharge Exam General- No acute distress Head- atraumatic Eyes- PERRL, EOMI, ENT- oropharynx clear Neck- supple, no JVD Lungs- CTAB, no rhonchi, no wheezing Heart- regular rhythm; no murmur Abdomen- normal bowel sounds, soft, nontender Extremities- no calf tenderness Neuro- alert, oriented x 3; PERRL, EOMI; no facial palsy; no dysarthria, moves extremities Skin- warm & dry Discharge Data Allergies Allergy/AdvReac Type Severity Reaction Status Date / Time Sulfa (Sulfonamide Allergy Mild "SULFA": Verified 07/16/20 15:51 Antibiotics) UPSET STOMACH Consultations 07/16/20 16:32 ED Decision to Admit Stat Ordered Studies 07/21/20 15:26 CT angio chest PE protocol Urgent IMPRESSION: 1. No pulmonary emboli identified although exam mildly compromised by mixing artifact. 2. Moderate multifocal consolidation groundglass opacities within lungs consistent with viral pneumonia. 3. Large hiatal hernia. 4. Hepatic steatosis. Hospital Course (1) Pneumonia due to 2019 novel coronavirus: (2) Hypoxia: Acute respiratory failure with hypoxia Present on admission with worsening SOB and cough CXR showed Multifocal airspace consolidation is typical for pneumonia Continue Dexamethasone 6mg IV daily and remdesivir daily (Remdesevir finished) Continue monitor LFT while on Remdesivir Inflammatory markers with ESR 36-><44 , C-reactive from 2.9 to 1.1 -> 2.14 and ferritin normal Pt said that her symptoms has been for about 1 week and was tested positive covid 19 on 07/13 Since symptoms as been going for 1 week, not a candidate for convalescent plasma CT PE - negative for PE 07/23 pt was on 1L NC in the afternoon but was on 4.5 L in the morning 07/26 Currently on RA, obtained 2 step test - no need for suppl. O2 However pt hypoxic overnight to 84%, obtained nocturnal hypoxia test - pt needs suppl. O2 w/ sleep (Rx given to CM) Continue encouraged pt to prone Continue monitor close Continue guaifenesin for the cough, incentive spirometry and flutter valve Diarrhea Mostly due to covid 19 stool cultx ordered Continue loperamide BID PRN improved Chest pain Mostly related to costochondritis due to cough from covid 19 Troponin x 3 negative EKG showed no ischemic changes Clinically stable Obtained CT PE, negat. for PE Resolved Anemia iron def status post EGD, which is showing large hiatal hernia with Thomas erosions. On iron infusion outpatient Hgb stable Transaminitis Possible related to acute illness Elevated LFT with AST 82 and ALT 105 and ALk phos 160 Liver enzymes trending down with AST 65->44-> 32, ALT 93->77->62 Continued to monitor CMP while on Remdesivir Depression Continue home medication of Adderall and bupropion and trazodone and Trintellix. DVT prophylaxis on Lovenox Total Time Total Time Spent Total Time Spent (In Minutes): 40 Total Time Includes: Examination of the Patient, Discharge Planning and Medication Reconciliation Discharge Plan Discharge Items Patient Disposition: Home - Self-Care Reason For Visit: CHEST PAIN, SOB Discharge Diagnosis: Acute hypoxic respiratory failure with hypoxia due to COVID-19 pneumonia Nocturnal hypoxia Elevated LFTs Activity: Per Instructions section Non-emergency contact: Primary Care Provider Call non-emergency contact if: you have any medication questions and your symptoms worsen Follow-up/Referrals: Blanca Andersen DO [Primary Care Provider] - (Date & Time 07/30/2020 11:10 AM Provider Blanca Andersen DO Department [facility] PLEASE NOTE THAT THIS IS A TELEHEALTH APPOINTMENT. PLEASE FOLLOW THE INSTRUCTIONS PROVIDED IN YOUR EMAIL. IF YOU HAVE ANY QUESTIONS REGARDING THIS APPOINTMENT, PLEASE CALL ) Diet: Heart Healthy Addtl Attending Provider Instructions: Follow-up with your primary care doctor, the appointment is scheduled for you for July 30. Take Decadron and doxycycline as prescribed, use inhaler as needed as prescribed as well. Recommend taking probiotics while on antibiotics. Use spirometer and flutter valve. Use continuous oxygen, 2 L/min via nasal cannula at night with sleep. This is likely secondary to your COVID-19 infection, however if it is persistent you may need a sleep study done. Addtl Gis Scientist Provider Instructions: Coronavirus disease 2019 (COVID-19) is a virus that causes a respiratory illness. It is caused by a coronavirus called 2019 novel coronavirus (2019- nCoV). There are many types of coronavirus. Coronaviruses are a very common cause of bronchitis. They may sometimes cause lung infection(pneumonia). Symptoms can range from mild to severe respiratory illness. These viruses are also foundin some animals. COVID-19 was first found in people in [facility], in late 2019. In 2020, several cases of C OVID-19 have been confirmed in the [place] Public health officials are working to find the source. How the virus spreads is not yet fully known. It may be spread through droplets of fluid that a person coughs or sneezes into the air. It may be spread if you touch a surface with virus on it, such as a handle or object, and then touch your mouth. What are the symptoms of COVID-19? Some people have no symptoms or mild symptoms. Symptoms may appear 2 to 14 days after contact with the virus. Symptoms can include: Fever Coughing Trouble breathing What are possible complications from COVID-19? In many cases, this virus can cause infection (pneumonia) in both lungs. In some cases, this can cause . How is COVID-19 diagnosed? Your healthcare provider will ask about your symptoms. He or she will also ask about your recent travel and contact with sick people. Testing for the virus is only done through the CDC. If yourhealthcare provider thinks you may have COVID- 19, he or she will work with your local health department and the CDC on testing. Follow all instructions from your healthcare provider. COVID-19 is diagnosed by: Nasal and throat swab. A cotton-tipped swab is wiped inside your nose or throat. This is done to check for viruses in your nasal mucus. Sputum culture. A small sample of mucus coughed from your lungs (sputum) is collected if you have a cough. It is checked for the virus. How is COVID-19 treated? There is currently no medicine to treat the virus. Treatment is done to help your body while it fights the virus. This is known as supportive care. Supportive care may include: Pain medicine. These include acetaminophen and ibuprofen. They are used to help ease pain and reduce fever. Bed rest. This helps your body fight the illness. For severe illness, you may need to stay in the hospital. Care during severe illness may include: IV (intravenous) fluids.These are given through a vein to help keep your body hydrated. Oxygen. Supplemental oxygen or ventilation with a breathing machine (ventilator) may be given. This is done to keep enough oxygen in your body. Are you at risk for COVID-19? If youve been to a place where people have been sick with this virus, you are at risk for infection. You are at risk if you: Recently traveled to an affected area Had contact with a sick person who recently traveled to this area Had contact with a person who was diagnosed with COVID-19 How can COVID-19 be prevented? There is no vaccine yet. The best prevention is to not have contact with the virus. The CDC advises that people should not travel to areas where there are COVID-19 outbreaks right now for any reason that is not urgent. To help prevent spreading the infection, wash your hands often, or use an alcohol-basedhand jigger artisan. If you are in an area with COVID-19: Wash your hands often. Or use an alcohol-based hand jigger artisan often. Only touch your eyes, nose, or mouth with clean hands. Dont have contact with people who are sick. Follow local instructions about being in public. For example, you may be told to not use public transport for a period of time. Stay away from markets that have live or animals. Wash your hands after touching any animals. Don't touch animals that may be sick. Dont share eating or drinking tools with sick people. Dont kiss someone who is sick. Clean surfaces often with disinfectant. If you were in an area with COVID-19 in the last 14 days: Call your healthcare provider. He or she can talk with local health staff to see what action may be needed. Follow all instructions from your provider. Take your temperature every morning and evening for at least 14 days. This is to check for fever. Keep a record of the readings. Keep watch for symptoms of the virus. Tell your provider right away if you have symptoms. If you were in an area with COVID-19 and have a fever or other symptoms: Dont panic. Keep in mind that other illnesses can cause similar symptoms. Stay away from work, school, and public places. Limit physical contact with family members. Don't kiss anyone or share eating or drinking utensils. Clean surfaces you touch with disinfectant. This is to help prevent the virus from spreading. Call your healthcare provider. Explain that you have been exposed to COVID-19 and have symptoms. Do this before going to any hospital. Wait for instructions. Keep in mind that healthcare staff may wear protective equipment such as masks, gowns, gloves, and eye protection. You may be put in a separate room. This is to prevent the possible virus from spreading. Tell the healthcare staff about recent travel. This includes local travel on public transport. Staff may need to find other people you have been in contact with. Follow all instructions the healthcare staff give you. If you have been diagnosed with COVID-19 Follow all instructions from your healthcare provider. Dont leave your home, except to get medical care. Call your healthcare providers office before going. They can prepare and give you instructions. This will help prevent the virus from spreading. Dont go to work, school, or public areas. Dont use public transport or taxis. Stay away from other people in your home. Have them wear face masks around you. Dont share household items or food. Wear a face mask if you can. This includes at home or in a medical facility. Cover your face with a tissue when you cough or sneeze. Throw the tissue away. Wash your hands. Wash your hands often. Caregivers should: Follow all instructions from healthcare staff. Wear a face mask and protective clothing as advised. Wash hands often. Keep track of the sick persons symptoms. Clean surfaces, fabrics, and laundry thoroughly. Keep other people away from the sick person. When to call your healthcare provider Call your healthcare provider: If youve recently traveled and have symptoms If you have been diagnosed with COVID-19 and your symptoms are worse To learn more To find out more about COVID-19, visit the CDC website at www.cdc.gov/coronavirus/2019-ncov/index.html. The [employer]. [address] [place] [address]. All rights reserved. This information is not intended as a substitute for professional medical care. Always follow your healthcare professional's instructions. This information has been adapted from [employer] Home Isolation COVID-19 Instructions The following information about Home Isolation is from the CDC Website: https://www.cdc.gov/coronavirus/2019-ncov/hcp/zfstthod-psrmdii-pvdhts.html Stay home except to get medical care People who are mildly ill with COVID-19 are able to isolate at home during their illness. You should restrict activities outside your home, except for getting medical care. Do not go to work, school, or public areas. Avoid using public transportation, ride-sharing, or taxis. Separate yourself from other people and animals in your home People: As much as possible, you should stay in a specific room and away from other people in your home. Also, you should use a separate bathroom, if available. Animals: You should restrict contact with pets and other animals while you are sick with COVID-19, just like you would around other people. Although there have not been reports of pets or other animals becoming sick with COVID-19, it is still recommended that people sick with COVID-19 limit contact with animals until more information is known about the virus. When possible, have another member of your household care for your animals while you are sick. If you are sick with COVID-19, avoid contact with your pet, including petting, snuggling, being kissed or licked, and sharing food. If you must care for your pet or be around animals while you are sick, wash your hands before and after you interact with pets and wear a face mask. Call ahead before visiting your doctor If you have a medical appointment, call the healthcare provider and tell them that you have or may have COVID-19. This will help the healthcare providers office take steps to keep other people from getting infected or exposed. Wear a face mask You should wear a face mask when you are around other people (e.g., sharing a room or vehicle) or pets and before you enter a healthcare providers office. If you are not able to wear a face mask (for example, because it causes trouble breathing), then people who live with you should not stay in the same room with you, or they should wear a face mask if they enter your room. Cover your coughs and sneezes Cover your mouth and nose with a tissue when you cough or sneeze. Throw used tissues in a lined trash can. Immediately wash your hands with soap and water for at least 20 seconds or, if soap and water are not available, clean your hands with an alcohol-based hand jigger artisan that contains at least 60% alcohol. Clean your hands often Wash your hands often with soap and water for at least 20 seconds, especially after blowing your nose, coughing, or sneezing; going to the bathroom; and before eating or preparing food. If soap and water are not readily available, use an alcohol-based hand jigger artisan with at least 60% alcohol, covering all surfaces of your hands and rubbing them together until they feel dry. Soap and water are the best option if hands are visibly dirty. Avoid touching your eyes, nose, and mouth with unwashed hands. Avoid sharing personal household items You should not share dishes, drinking glasses, cups, eating utensils, towels, or bedding with other people or pets in your home. After using these items, they should be washed thoroughly with soap and water. Clean all high-touch surfaces everyday High touch surfaces include counters, tabletops, doorknobs, bathroom fixtures, toilets, phones, keyboards, tablets, and bedside tables. Also, clean any surfaces that may have blood, stool, or body fluids on them. Use a household cleaning spray or wipe, according to the label instructions. Labels contain instructions for safe and effective use of the cleaning product including precautions you should take when applying the product, such as wearing gloves and making sure you have good ventilation during use of the product. Monitor your symptoms Seek prompt medical attention if your illness is worsening (e.g., difficulty breathing).Beforeseeking care, call your healthcare provider and tell them that you have, or are being evaluated for, COVID-19. Put on a face mask before you enter the facility. These steps will help the healthcare providers office to keep other people in the office or waiting room from getting infected or exposed. Ask your healthcare provider to call the local or state health department. Persons who are placed under active monitoring or facilitated self- monitoring should follow instructions provided by their local health department or occupational health professionals, as appropriate. When working with your local health department check their available hours. If you have a medical emergency and need to call 911, notify the dispatch personnel that you have, or are being evaluated for COVID-19. If possible, put on a face mask before emergency medical services arrive. Discontinuing home isolation Patients with confirmed COVID-19 should remain under home isolation precautions until the risk of secondary transmission to others is thought to be low. The decision to discontinue home isolation precautions should be made on a fiei-gi-mobs basis, in consultation with healthcare providers and state and local health departments. Pending Studies at Discharge: No Stand-Alone Forms: My MAD Incubator, Smoking Cessation Medications and DC Order Prescriptions: New doxycycline hyclate 100 mg Capsule 100 mg PO BID 3 Days Qty: 6 RF: 0 Advanced Probiotic 625 mg (10 billion cell) Capsule 2 cap PO DAILY Qty: 10 RF: 0 benzonatate [Tessalon Perles] 100 mg Capsule 100 mg PO TID PRN (Reason: cough) Qty: 14 RF: 0 guaifenesin [Mucinex] 600 mg Tablet Extended Release 12hr 600 mg PO Q12 Qty: 10 RF: 0 albuterol sulfate 90 mcg/actuation HFA aerosol inhaler 1 inh inhalation Q4H PRN (Reason: shortness of breath or wheezing) Qty: 8.5 RF: 0 dexamethasone [Decadron] 6 mg tablet 6 mg PO DAILY 3 Days Qty: 3 RF: 0 Continued cyclobenzaprine 10 mg Tablet 10 mg PO HS PRN (Reason: Muscle Spasm) RF: 0 gabapentin 600 mg tablet 600 mg PO HS RF: 0 dextroamphetamine-amphetamine 30 mg tablet 30 mg PO BID RF: 0 alprazolam 0.5 mg tablet 0.5 mg PO Q8 PRN (Reason: Anxiety) RF: 0 dextroamphetamine-amphetamine 15 mg tablet 15 mg PO QPM RF: 0 bupropion HCl 300 mg tablet extended release 24 hr 300 mg PO DAILY RF: 0 trazodone 50 mg tablet 50 mg PO HS RF: 0 Trintellix 20 mg tablet 20 mg PO QAM RF: 0 omeprazole 20 mg capsule,delayed release(DR/EC) 20 mg PO BID RF: 0 hydrochlorothiazide 25 mg tablet 25 mg PO DAILY RF: 0 dicyclomine 10 mg capsule 10 mg PO QID PRN (Reason: Abdominal Discomfort) RF: 0 Discharge Orders: Discharge Order (Routine); Ordered 07/26/20 Ordered By: Thong Farr Admission Data Admit Date/Time: 07/16/20 17:34 Attending Provider: Thong Farr Admit Provider: Jacky Ingram Primary Care Provider: Blanca Andersen Other Providers: Jacky Ingram ; Shu Renee
== END 2020-07-26 12:20 | disposition home or self-care (01) | DRG 177 ==
LOC: ED 14:17 → SUATTDRO 17:34 → 2S 17:34 → 2E 07-21 18:55
DX: J12.82 Pneumonia due to coronavirus disease 2019; F90.9 Attention-deficit hyperactivity disorder, unspecified type; A08.39 Other viral enteritis; R74.01 Elevation of levels of liver transaminase levels; U07.1 COVID-19; K44.9 Diaphragmatic hernia without obstruction or gangrene; Z88.2 Allergy status to sulfonamides; J96.01 Acute respiratory failure with hypoxia; R53.82 Chronic fatigue, unspecified; D50.9 Iron deficiency anemia, unspecified; M94.0 Chondrocostal junction syndrome [Tietze]; F41.8 Other specified anxiety disorders